=== PATIENT | male | born 1980 | race Caucasian/White ===

== ENCOUNTER 2018-07-24 22:28 | Emergency (ER) | payer BC, SELFPAY ==
[2018-07-24 22:45] VITALS: BP 150/80; PULSE 72; TEMP 36.4; O2SAT 95
--- NOTE | 2018-07-24 23:15 | W.ED.GENAD ---
Discharge Plan Disposition Patient Disposition: HOME Condition: Good Discharge Details Chief Complaint: Abd Prob Clinical Impression: Gastritis Reason For Visit: abd pain Primary Care Provider: Jb Dang ED Provider: Lawson Alvarez Home Meds and New Rx's Prescriptions: New pantoprazole 40 mg tablet,delayed release (DR/EC) 40 mg PO BID Qty: 60 RF: 0 ranitidine HCl 300 mg capsule 300 mg PO DAILY Qty: 30 RF: 0 No Action hydrocodone-acetaminophen 1 EACH tablet 1 tab-cap PO Q4H PRN Qty: 40 RF: 0 ketorolac 10 MG tablet 10 mg PO Q8H Qty: 15 RF: 0 montelukast [Singulair] 10 MG tablet 10 mg PO BOLUS RF: 0 fluticasone [Flovent HFA] 120 PUFF HFA aerosol inhaler 2 puff Inhalation BID RF: 0 levalbuterol tartrate [Xopenex HFA] 200 PUFF HFA aerosol inhaler 2 puff Inhalation PRN PRNRF: 0 Discharge Instructions Instructions: Gastritis (ED) Additional Instructions: Please take the medication as directed. Please avoid any spicy foods, citrus-based products. If you notice any worsening of your symptoms, or any new symptoms such as vomiting, diarrhea, fever, chills, shortness of breath, chest pain, numbness, weakness, or fainting , please return immediately to the emergency department for reevaluation. Please follow up with your primary care provider as soon as possible for reassessment and reevaluation. As always, it was a pleasure participating in your medical care today. Medical Decision Making MDM Narrative Medical decision making narrative: This is a very pleasant 38-year-old male with no significant past medical history who presents today for evaluation of supraumbilical pain. It started 4 hours prior to arrival, and initially was in the back but is now in the anterior abdomen. He denies any flank pain or urinary symptoms. Currently his abdomen is mildly tender, no guarding or rebound. Patient denies any spicy foods, history of gastric ulcers. He did take a Pepcid at home but this did not improve his symptoms. We will give the patient a GI cocktail, evaluate for unlikely but atypical cardiac etiology. I did discuss potential CT scan versus observation and medical management, and with a recurrence of his symptoms, the patient does feel that a CT scan is reasonable. Although I feel that we might not find any significant etiology with I do feel that it is indicated to rule out acute pathology of cholecystitis, pancreatic abscess or mass, or other acute pathology. We will get a CT scan for further evaluation EKG 23: 17 Rate 55, intervals normal, sinus bradycardia, no ST elevations or depressions, no T-wave inversions. No significant Q waves. Normal EKG 1:33 AM Patient's laboratory workup has returned benign. No significant abnormalities. CT scan results from virtual radiology demonstrate no acute findings. No evidence of appendicitis or other acute pathology. On reevaluation the patient is feeling much better. I do feel his symptoms are most likely secondary to mild gastritis. We will send the patient home with J medications, we discussed foods for which to avoid, as well as the importance of close follow-up. I have extensively reviewed the treatment plan and discharge instructions with the patient. I have addressed all patient concerns at this time. The patient was made aware of what symptoms to monitor for that would warrant a return to the emergency department. Discussed the plan with the patient, they demonstrate verbal understanding and agreement with our assessment and plan at this time. HPI - General Adult General Date/Time Provider Initiated Documentation: 07/24/18 23:07. HPI Narrative: This is a 38-year-old male with no significant past medical history except for asthma, who does take occasional Pepcid, who presents today for evaluation of supraumbilical/epigastric abdominal pain. The patient states that 4 hours prior to arrival he had initially a midline back pain which she describes as achy, and then transition to the epigastric and supraumbilical region. It is been continuous in nature, it is been worsened nothing, improved by nothing. He did take a home Pepcid but this did not improve his symptoms. He has had no associated nausea, vomiting, or diarrhea. He has not had anything spicy, or made any changes into his diet recently. The patient did have an episode similar to this 4 weeks ago, which she states that he was seen and assessed at an ER in [place], no imaging or significant workup was done at that time, however the pain got better on its own after GI cocktail. The patient denies any other associated symptoms. He denies any hematuria, flank pain, dysuria, increased urinary frequency, history of gastric problems, or gastric ulcers. The Pepcid that he took was given to him on his last ER visit 4 weeks ago. He denies any previous abdominal surgeries. He denies any pertinent family history. He denies any history of IV or illicit drug use. He has no other complaints at this time Related Data Home Medications Medication Instructions Recorded Confirmed fluticasone [Flovent 220MCG] 2 puff INHALATION BID 07/04/15 03/04/16 levalbuterol tartrate [Xopenex Hfa] 2 puff INHALATION PRN PRN 07/04/15 03/04/16 montelukast [Singulair] 10 mg PO BOLUS 07/04/15 03/04/16 hydrocodone-acetaminophen 1 tab-cap PO Q4H PRN #40 tab-cap 03/09/16 ketorolac 10 mg PO Q8H #15 tab-cap 03/09/16 Previous Rx's Medication Instructions Recorded pantoprazole 40 mg PO BID #60 tab 07/25/18 ranitidine HCl 300 mg PO DAILY #30 cap 07/25/18 Allergies Allergy/AdvReac Type Severity Reaction Status Date / Time No Known Allergies Allergy Unverified 07/24/18 23:35 General Stated Complaint: Abd Prob JEREMIAH: 3 Review of Systems Review of Systems 10 point review of systems was performed, pertinent positives and negatives are noted in the history of present illness. [facility] Social History Smoking/Tobacco Use Status: Never Exam Narrative Exam Narrative: 1.Const: Well-nourished, Well-developed, appearing stated age 2.Eyes: PERRL, no conjunctival injection, and symmetrical lids. 3.ENT: Atraumatic external nose and ears. Moist MM. Neck: Symmetric, trachea midline, No thyromegaly. 4.CVS: +S1/S2, No murmurs or gallops. Peripheral pulses 2+ and equal in all extremities. Brisk capillary refill in all extremities. 5.RESP: Unlabored respiratory effort. Clear to auscultation bilaterally. No wheezes rales or rhonchi 6.GI: Soft, no guarding or rebound, no flank tenderness, no CVA tenderness minimal tenderness in the supraumbilical region. Negative Cano sign, no pain at McBurney's point. Negative obturator and psoas sign.. 7.MSK: Normocephalic/Atraumatic, Extremities w/o deformity or ttp No cyanosis or clubbing, Normal movement of all extremities 8.Skin: Warm, Dry. No rashes or lesions. 9.Neuro: manager of planning II-XII grossly intact. Sensation grossly intact, no focal neurologic deficits. 10.Psych: (AAO) x3. Appropriate mood and affect Course Vital Signs Temperature 36.4 C L 07/24/18 22:45 Pulse 72 07/24/18 22:45 Blood Pressure 150/80 H 07/24/18 22:45 Pulse Oximetry 95 07/24/18 22:45 Temperature 36.4 C L 07/24/18 22:45 Pulse 72 07/24/18 22:45 Blood Pressure 150/80 H 07/24/18 22:45 Pulse Oximetry 95 07/24/18 22:45
[2018-07-24] MEDS: Acetaminophen 500 MG TAB 1000 MG PO (23:18)
[2018-07-24] MEDS: Normal Saline 1,000 ML 1000 ML IV (23:19)
[2018-07-24 23:26] LABS: Abs Immature Grans 0.01 k/cumm (0.0-0.09); Absolute Basophil Count 0.04 k/cumm (0.0-0.2); Absolute Eosinophil Count 0.34 k/cumm (0.0-0.7); Absolute Lymphocyte Count 1.71 k/cumm (1.2-3.4); Absolute Monocyte Count 0.52 k/cumm (0.11-0.7); Absolute Neutrophil Count 3.89 k/cumm (1.2-6.7); Basophils % 0.6; Eosinophils % 5.2; HCT 41.7 % (40.0-50.0); HGB 14.6 g/dL (13.5-17.5); Immature Grans % 0.2; Lymphocytes % 26.3; Mean Corpuscular Hemoglobin 32.2 pg (27.0-33.0); Mean Corpuscular Volume 91.9 fL (80-95); Mean Platelet Volume 9.2 fL (8.0-11.0); Neutrophils % 59.7; Platelet Count 229 x1000/uL (130-400); RBC 4.54 m/cumm (4.50-6.00); RBC Distribution Width 12.4 % (11.8-14.1); White Blood Cell Count 6.51 k/cumm (4.4-10.8)
[2018-07-24 23:35] LABS: Bilirubin Negative (Negative); Blood Negative (Negative); Clarity Clear; Glucose Negative (Negative); Ketones Negative (Negative); Leukocyte Esterase Negative (Negative); Nitrite Negative (Negative); Specific Gravity >= 1.030 (1.005-1.025); Urobilinogen 0.2 EU/dL (Up TO 0.2); pH 5.5 (5-8)
[2018-07-24 23:36] LABS: Lipase 387 U/L (73-393)
[2018-07-24 23:41] LABS: ALT 30 U/L (12-78); AST 18 U/L (15-37); Alkaline Phosphatase 78 U/L (46-116); Anion Gap 9.2 mmol/L (3-11); BUN 11 mg/dL (7-18); Bilirubin, Total 0.4 mg/dL (0.2-1.0); CO2 27.8 mmol/L (21.0-32.0); CREATININE 0.83 mg/dL (0.70-1.30); Calcium 8.6 mg/dL (8.5-10.1); Chloride 102 mmol/L (98-107); Glucose 125 mg/dL (70-100); Potassium 3.4 mmol/L (3.5-5.1); Sodium 139 mmol/L (136-145); Total Protein 7.5 g/dL (6.4-8.2)
[2018-07-24 23:44] LABS: Troponin I < 0.02 ng/mL (0.00-0.06)
[2018-07-25] MEDS: Dicyclomine 10 MG CAP 20 MG (00:01)
[2018-07-25] MEDS: Omnipaque 350 MG/ML 50 ML BTL PO (00:10)
--- NOTE | 2018-07-25 00:55 | DI.CT_ITS ---
SYMPTOM/DIAGNOSIS: EPIGASTRIC AND SUPRAUMBILICAL ABD PAIN ABDOMEN AND PELVIC CT: The study was carried out with an intravenous injection of 100 cc's of Omnipaque 350. The lung bases are unremarkable. The liver is unremarkable. The gallbladder is intact with no stones or ductal dilatation. The pancreas, spleen and adrenals and kidneys and stomach and bowel are unremarkable. There is nothing to suggest an acute appendix. The bladder is intact. The reproductive organs as visualized are intact. There is no evidence of free air or free fluid in the intraperitoneal space. No acute bony abnormality is seen. No soft tissue abnormality is identified. There is no evidence of an aortic aneurysm. There is no lymphadenopathy. SUMMARY: No evidence of an acute abdomen.
[2018-07-25] MEDS: Omnipaque 350 MG/ML 100 ML BTL IJ (01:09)
--- NOTE | 2018-07-25 01:17 | DI.VRAD_ITS ---
EXAM: CT Abdomen and Pelvis With Intravenous Contrast CLINICAL HISTORY: 38 years old, male; Pain; Abdominal pain; Acute; Patient HX: Sudden onset abd pain for 6 hours TECHNIQUE: Axial computed tomography images of the abdomen and pelvis with intravenous contrast. All CT scans at this facility use at least one of these dose optimization techniques: automated exposure control; mA and/or kV adjustment per patient size (includes targeted exams where dose is matched to clinical indication); or iterative reconstruction. Coronal and sagittal reformatted images were created and reviewed. CONTRAST: 100 mL of Omnipaque 350 administered intravenously. COMPARISON: No relevant prior studies available. FINDINGS: Lung bases: Unremarkable. No mass. No consolidation. ABDOMEN: Liver: Unremarkable. No mass. Gallbladder and bile ducts: Unremarkable. No calcified stones. No ductal dilation. Pancreas: Unremarkable. No mass. No ductal dilation. Spleen: Unremarkable. No splenomegaly. Adrenals: Unremarkable. No mass. Kidneys and ureters: Unremarkable. No solid mass. No hydronephrosis. Stomach and bowel: Unremarkable. No obstruction. No mucosal thickening. PELVIS: Appendix: Normal appendix. Bladder: Unremarkable. No mass. Reproductive: Unremarkable as visualized. ABDOMEN and PELVIS: Intraperitoneal space: Unremarkable. No free air. No significant fluid collection. Bones/joints: No acute fracture. No dislocation. Soft tissues: Unremarkable. Vasculature: Unremarkable. No abdominal aortic aneurysm. Lymph nodes: Unremarkable. No enlarged lymph nodes. IMPRESSION: No acute findings. Dictated and Authenticated by: David Regan MD. Ordering:KIMBERLY ANDERS MD
== END 2018-07-25 01:43 | disposition home or self-care (01) ==
PROVIDERS: Emergency Provider Student in an Organized Health Care Education/Training Program; PCP Family Medicine
DX: K29.00 Acute gastritis without bleeding (principal)
CPT/HCPCS: 36415; 80053; 83690; 93005; 99285; 74177; 81003; 84484; 85025; 93010; 99284; J3490; Q9967

== ENCOUNTER 2018-07-28 22:32 | Observation (INO) | payer BC, SELFPAY ==
--- NOTE | 2018-07-28 00:26 | DI.CT_ITS ---
SYMPTOM/DIAGNOSIS: ABD AND BACK PAIN CTA CHEST, ABDOMEN AND PELVIS: CT angiography was performed with multi slice acquisition and multi planar and 3D reconstruction. ABDOMEN AND PELVIS: Comparison is made with 07/25/18. There are areas of relatively increased attenuation in the liver adjacent to the gallbladder fossa. No hepatic mass is seen. No biliary ductal dilatation is seen. The portal and superior mesenteric veins are patent. The gallbladder is mildly distended. There is soft tissue stranding around the gallbladder. The pancreas, spleen and adrenal glands are unremarkable. The kidneys show normal and symmetric enhancement. No solid renal mass or obstruction is seen. The urinary bladder is intact. The reproductive organs are grossly unremarkable. The bowel shows no evidence of obstruction or inflammation. No findings to suggest an acute appendicitis are present. The thoracic aorta is intact. No evidence of dissection or aneurysm. The celiac axis, superior mesenteric artery and inferior mesenteric arteries are all unremarkable without evidence of significant stenosis, occlusion or dissection. Note is made of a small fat containing umbilical hernia. The bones are intact. Note is made of a Schmorl's node at the superior endplate of L 4. IMPRESSION: 1. No evidence of arterial injury, dissection or aneurysm. 2. Findings suggestive of acute cholecystitis. 3. Increased attenuation in the liver around the gallbladder fossa. This may be due to adjacent gallbladder inflammation. Focal fatty sparing cannot be excluded. CHEST: The superior chest including portions of the superior aspect of the thoracic aortic arch were not included on the examination. The visualized thoracic aorta is intact and of normal caliber. No evidence of dissection is seen. Heart size is within normal limits. No significant pericardial effusion is seen. No significant thoracic adenopathy, pleural effusion or pneumothorax is identified on this examination. The lungs are clear. No acute fracture is seen in the spine. IMPRESSION: 1. No evidence of an acute abnormality. 2. The upper chest including the superior portion of the thoracic aortic arch were not included on this examination.
[2018-07-28 22:37] VITALS: BP 135/88; PULSE 78; RESP 16; TEMP 36.9; O2SAT 99
--- NOTE | 2018-07-28 22:57 | W.ED.GENAD ---
Discharge Plan Disposition Patient Disposition: [facility] INPATIENT Condition: Stable Discharge Details Chief Complaint: Abd Prob Clinical Impression: Abdominal pain, Acalculous cholecystitis Primary Care Provider: Jb Dang ED Provider: Rafa Ruvalcaba Home Meds and New Rx's Prescriptions: No Action montelukast [Singulair] 10 MG tablet 10 mg PO BOLUS RF: 0 fluticasone [Flovent HFA] 120 PUFF HFA aerosol inhaler 2 puff Inhalation BID RF: 0 levalbuterol tartrate [Xopenex HFA] 200 PUFF HFA aerosol inhaler 2 puff Inhalation PRN PRNRF: 0 pantoprazole 40 mg tablet,delayed release (DR/EC) 40 mg PO BID Qty: 60 RF: 0 ranitidine HCl 300 mg capsule 300 mg PO DAILY Qty: 30 RF: 0 Medical Decision Making 38 yo male with hx of asthma, who comes in with abdominal burning. He was seen here earlier this week for abdominal pain and had unremarkable workup including labs and imaging. He was diagnosed with likely gastritis and placed on ppi and h2 blockers. He was doing well until tonight when about 1-2 hours prior to arrival he had crackers and cheese and had increased burning sensation in the abdomen, no chest pain, sob, and no pain with exertion, does have some mild back pain which he had last time as well. His abdominal exam is benign and do not feel additional lab work or imaging indicated as unlikely surgical pathology, will treat his symptoms with gi cocktail and reassess. Has no chest pain or shortness of breath so doubt acs at this time pt had minimal relief with gi cocktail, will eval forhepatis vs pancreattis and give carafate pt now stating pain is much more severe and is in the upper abdomen and radiating to the back. Given this will obtain CT imaging to eval for acute pathology ct shows findings suggestive of acute cholecystitis though no gallstones are seen. His pain is improved but he still has pain in the upper abdomen and does have gonzalez's sign on my exma. Spoke with Dr. Pierce who accepts the admission and asks zosyn be given and holding orders, pt updated and is in agreement with the plan Differential Diagnosis gastritis, ulcer, gerd Imaging Data Radiologic Study: Attestation: I personally reviewed and interpreted this imaging study as follows: Imaging: CT Scan Radiologist's impression: findings suggestive of acute cholecystitis Lab Data Lab results reviewed: Yes I reviewed the patient's lab results. HPI General Mode of arrival: ambulatory. Date/Time Provider Initiated Documentation: 07/28/18 22:40. Limitations to Documentation: no limitations. Information obtained by: patient. History of Present Illness 38 year old M presents to the emergency department with the chief complaint of abdominal burning, described as moderate, with intensity rated at 5. Quality is described as burning, and is localized to the abdomen. Patient reports radiation to back. Patient started experiencing this hour(s) (2) and it has been constant. No relieving factors improve symptom(s), No exacerbating factors reported . Patient notes no other symptoms.. Patient did receive the following treatments prior to arrival, none Related Data Home Medications Medication Instructions Recorded Confirmed fluticasone [Flovent 220MCG] 2 puff INHALATION BID 07/04/15 07/28/18 levalbuterol tartrate [Xopenex Hfa] 2 puff INHALATION PRN PRN 07/04/15 07/28/18 montelukast [Singulair] 10 mg PO BOLUS 07/04/15 07/28/18 Previous Rx's Medication Instructions Recorded pantoprazole 40 mg PO BID #60 tab 07/25/18 ranitidine HCl 300 mg PO DAILY #30 cap 07/25/18 Allergies Allergy/AdvReac Type Severity Reaction Status Date / Time No Known Allergies Allergy Unverified 07/28/18 22:45 General Stated Complaint: Abd Prob JEREMIAH: 3 Review of Systems Review of Systems All systems reviewed & are unremarkable except as noted in HPI and below Constitutional Denies chills, Denies fever(s) and Denies weakness Eyes Patient Denies loss of vision ENT Denies change in voice Cardiovascular Denies chest pain and Denies dyspnea Respiratory Denies dyspnea Gastrointestinal Denies vomiting Genitourinary Denies dysuria Musculoskeletal Denies joint swelling Integumentary/Breasts Denies rash Neurologic Denies loss of vision and Denies weakness Psychiatric Denies depression Endocrine Denies cold intolerance and Denies heat intolerance Allergic/Immunologic Reports urticaria PFSH Social History Smoking/Tobacco Use Status: Never Exam Const General: no acute distress Orientation: alert HENMT Head: normal to inspection Ears: external ears normal General nose exam: external nose normal Mouth: moist mucous membranes Eyes General: appearance normal, both eyes and all related structures Neck Neck: normal visual inspection Resp Effort & Inspection: normal respiratory effort and able to speak in complete sentences Cardio Rate: regular rate GI Inspection: normal to inspection and other (mild tenderness without guarding throughout the upper abdomen, no rebound tenderness, no lower abdominal tendernress) Palpation: soft Skin General skin exam: no rashes or lesions noted Neuro General: alert and oriented x3 Extrem General: normal to inspection Psych Mental Status: mental status grossly normal Course Vital Signs Temperature 36.9 C 07/28/18 22:37 Pulse 78 07/28/18 22:37 Respiratory Rate 16 07/28/18 22:37 Blood Pressure 135/88 07/28/18 22:37 Pulse Oximetry 99 07/28/18 22:37 Temperature 36.9 C 07/28/18 22:37 Pulse 78 07/28/18 22:37 Respiratory Rate 16 07/28/18 22:37 Blood Pressure 135/88 07/28/18 22:37 Pulse Oximetry 99 07/28/18 22:37
--- NOTE | 2018-07-28 23:00 | ED.GENADUL_ITS ---
Discharge Plan Disposition Patient Disposition: [facility] INPATIENT Condition: Stable Discharge Details Chief Complaint: Abd Prob Clinical Impression: Abdominal pain, Acalculous cholecystitis Primary Care Provider: Jb Dang ED Provider: Rafa Ruvalcaba Home Meds and New Rx's Prescriptions: No Action montelukast [Singulair] 10 MG tablet 10 mg PO BOLUS RF: 0 fluticasone [Flovent HFA] 120 PUFF HFA aerosol inhaler 2 puff Inhalation BID RF: 0 levalbuterol tartrate [Xopenex HFA] 200 PUFF HFA aerosol inhaler 2 puff Inhalation PRN PRNRF: 0 pantoprazole 40 mg tablet,delayed release (DR/EC) 40 mg PO BID Qty: 60 RF: 0 ranitidine HCl 300 mg capsule 300 mg PO DAILY Qty: 30 RF: 0 Medical Decision Making 38 yo male with hx of asthma, who comes in with abdominal burning. He was seen here earlier this week for abdominal pain and had unremarkable workup including labs and imaging. He was diagnosed with likely gastritis and placed on ppi and h2 blockers. He was doing well until tonight when about 1-2 hours prior to arrival he had crackers and cheese and had increased burning sensation in the abdomen, no chest pain, sob, and no pain with exertion, does have some mild back pain which he had last time as well. His abdominal exam is benign and do not feel additional lab work or imaging indicated as unlikely surgical pathology , will treat his symptoms with gi cocktail and reassess. Has no chest pain or shortness of breath so doubt acs at this time pt had minimal relief with gi cocktail, will eval forhepatis vs pancreattis and give carafate pt now stating pain is much more severe and is in the upper abdomen and radiating to the back. Given this will obtain CT imaging to eval for acute pathology ct shows findings suggestive of acute cholecystitis though no gallstones are seen. His pain is improved but he still has pain in the upper abdomen and does have gonzalez's sign on my exma. Spoke with Dr. Pierce who accepts the admission and asks zosyn be given and holding orders, pt updated and is in agreement with the plan Differential Diagnosis gastritis, ulcer, gerd Imaging Data Radiologic Study: Attestation: I personally reviewed and interpreted this imaging study as follows: Imaging: CT Scan Radiologist's impression: findings suggestive of acute cholecystitis Lab Data Lab results reviewed: Yes I reviewed the patient's lab results. HPI General Mode of arrival: ambulatory . Date/Time Provider Initiated Documentation: 07/28/18 22:40 . Limitations to Documentation: no limitations . Information obtained by: patient . History of Present Illness 38 year old M presents to the emergency department with the chief complaint of abdominal burning, described as moderate, with intensity rated at 5. Quality is described as burning, and is localized to the abdomen. Patient reports radiation to back. Patient started experiencing this hour(s) (2) and it has been constant. No relieving factors improve symptom(s), No exacerbating factors reported . Patient notes no other symptoms.. Patient did receive the following treatments prior to arrival, none Related Data Home Medications Medication Instructions Recorded Confirmed fluticasone [Flovent 220MCG] 2 puff INHALATION BID 07/04/15 07/28/18 levalbuterol tartrate [Xopenex Hfa] 2 puff INHALATION PRN PRN 07/04/15 07/28/18 montelukast [Singulair] 10 mg PO BOLUS 07/04/15 07/28/18 Previous Rx's Medication Instructions Recorded pantoprazole 40 mg PO BID #60 tab 07/25/18 ranitidine HCl 300 mg PO DAILY #30 cap 07/25/18 Allergies Allergy/AdvReac Type Severity Reaction Status Date / Time No Known Allergies Allergy Unverified 07/28/18 22:45 General Stated Complaint: Abd Prob JEREMIAH: 3 Review of Systems Review of Systems All systems reviewed & are unremarkable except as noted in HPI and below Constitutional Denies chills, Denies fever(s) and Denies weakness Eyes Patient Denies loss of vision ENT Denies change in voice Cardiovascular Denies chest pain and Denies dyspnea Respiratory Denies dyspnea Gastrointestinal Denies vomiting Genitourinary Denies dysuria Musculoskeletal Denies joint swelling Integumentary/Breasts Denies rash Neurologic Denies loss of vision and Denies weakness Psychiatric Denies depression Endocrine Denies cold intolerance and Denies heat intolerance Allergic/Immunologic Reports urticaria PFSH Social History Smoking/Tobacco Use Status: Never Exam Const General: no acute distress Orientation: alert HENMT Head: normal to inspection Ears: external ears normal General nose exam: external nose normal Mouth: moist mucous membranes Eyes General: appearance normal, both eyes and all related structures Neck Neck: normal visual inspection Resp Effort & Inspection: normal respiratory effort and able to speak in complete sentences Cardio Rate: regular rate GI Inspection: normal to inspection and other (mild tenderness without guarding throughout the upper abdomen, no rebound tenderness, no lower abdominal tendernress) Palpation: soft Skin General skin exam: no rashes or lesions noted Neuro General: alert and oriented x3 Extrem General: normal to inspection Psych Mental Status: mental status grossly normal Course Vital Signs Temperature 36.9 C 07/28/18 22:37 Pulse 78 07/28/18 22:37 Respiratory Rate 16 07/28/18 22:37 Blood Pressure 135/88 07/28/18 22:37 Pulse Oximetry 99 07/28/18 22:37 Temperature 36.9 C 07/28/18 22:37 Pulse 78 07/28/18 22:37 Respiratory Rate 16 07/28/18 22:37 Blood Pressure 135/88 07/28/18 22:37 Pulse Oximetry 99 07/28/18 22:37
[2018-07-28] MEDS: Sucralfate 1 GM TAB 2 GM PO (23:22)
[2018-07-28 23:36] LABS: Abs Immature Grans 0.02 k/cumm (0.0-0.09); Absolute Basophil Count 0.05 k/cumm (0.0-0.2); Absolute Eosinophil Count 0.37 k/cumm (0.0-0.7); Absolute Lymphocyte Count 1.13 k/cumm (1.2-3.4); Absolute Monocyte Count 0.95 k/cumm (0.11-0.7); Absolute Neutrophil Count 7.16 k/cumm (1.2-6.7); Basophils % 0.5; Eosinophils % 3.8; HCT 41.2 % (40.0-50.0); HGB 14.3 g/dL (13.5-17.5); Immature Grans % 0.2; Lymphocytes % 11.7; Mean Corp. HGB Concentration 34.7 g/dL (32.0-36.0); Mean Corpuscular Hemoglobin 32.3 pg (27.0-33.0); Monocytes % 9.8; Platelet Count 250 x1000/uL (130-400); RBC 4.43 m/cumm (4.50-6.00); RBC Distribution Width 12.3 % (11.8-14.1); White Blood Cell Count 9.68 k/cumm (4.4-10.8)
[2018-07-29] VITALS (18 sets, daily range): BP systolic 116–174; BP diastolic 66–98; PULSE 76–148; RESP 14–18; TEMP 36.7–37.9; O2SAT 94–98
[2018-07-29 00:02] LABS: ALT 25 U/L (12-78); AST 16 U/L (15-37); Albumin 3.8 g/dL (3.4-5.0); Alkaline Phosphatase 83 U/L (46-116); Anion Gap 7.5 mmol/L (3-11); BUN 11 mg/dL (7-18); CO2 30.5 mmol/L (21.0-32.0); CREATININE 0.79 mg/dL (0.70-1.30); Calcium 9.2 mg/dL (8.5-10.1); Chloride 100 mmol/L (98-107); Glucose 115 mg/dL (70-100); Lipase 194 U/L (73-393); Potassium 3.9 mmol/L (3.5-5.1); Sodium 138 mmol/L (136-145); Total Protein 7.7 g/dL (6.4-8.2)
[2018-07-29] MEDS: fentaNYL 100 MCG/2 ML VIAL IVP ×2 (00:09→00:58)
[2018-07-29] MEDS: Omnipaque 350 MG/ML 100 ML BTL IJ (00:28)
[2018-07-29] MEDS: HYDROmorphone 2 MG/ML VIAL 1 MG IVP ×2 (01:32→02:19)
--- NOTE | 2018-07-29 01:52 | DI.VRAD_ITS ---
EXAM: CT Angiography Chest With Intravenous Contrast EXAM DATE/TIME: 07/28/2018 12:00 AM CLINICAL HISTORY: 38 years old, male; Pain; Other: Back pain; Abdominal pain; Acute TECHNIQUE: Axial computed tomographic angiography images of the chest with intravenous contrast using CT angiography protocol. MIP reconstructed images were created and reviewed. COMPARISON: No relevant prior studies available. FINDINGS: Pulmonary arteries: Normal. No pulmonary emboli. Aorta: There is no thoracic aortic aneurysm or evidence of dissection. Please note the aortic arch is partially excluded from the [id number]. Lungs: Normal. No consolidation. No masses. Pleural space: Normal. No pneumothorax. No pleural effusion. Heart: Normal. No cardiomegaly. No pericardial effusion. Bones/joints: Scattered Schmorl's nodes are present in the thoracic spine. No acute fractures are seen. No subluxation. Soft tissues: Unremarkable. Lymph nodes: Unremarkable. No enlarged lymph nodes. IMPRESSION: 1. No acute findings. 2. Please note that the aortic arch is partially excluded from the [id number]. EXAM: CT Angiography Abdomen and Pelvis With Intravenous Contrast EXAM DATE/TIME: 07/28/2018 12:00 AM CLINICAL HISTORY: 38 years old, male; Pain; Other: Back pain; Abdominal pain; Acute TECHNIQUE: Axial computed tomographic angiography images of the abdomen and pelvis with intravenous contrast material, including non-contrast images if performed. MIP and/or 3D reconstructed images were created and reviewed. MIP reconstructed images were created and reviewed. COMPARISON: No relevant prior studies available. FINDINGS: Lungs: Normal. No consolidation. VASCULATURE: Aorta: No aortic aneurysm. No aortic dissection. Celiac Trunk and Mesenteric Arteries: No occlusion or significant stenosis. Renal Arteries: No occlusion or significant stenosis. Iliac Arteries: No occlusion or significant stenosis. Common Femoral Arteries: No occlusion or significant stenosis. ABDOMEN: Liver: Region of increased attenuation/enhancement is present in the liver about the gallbladder fossa, which may be seen in the setting of gallbladder inflammation. No discrete mass is seen. No hepatomegaly. Gallbladder and bile ducts: The gallbladder is mildly distended, with hazy indistinctness of the gallbladder wall and mild degree of surrounding fat stranding. No calcified stones are seen. Pancreas: Unremarkable. No mass. No ductal dilation. Spleen: Unremarkable. No splenomegaly. Adrenals: Unremarkable. No mass. Kidneys and ureters: Unremarkable. No solid mass. No hydronephrosis. Stomach and bowel: Unremarkable. No obstruction. No mucosal thickening. Appendix: No evidence of appendicitis. PELVIS: Bladder: Unremarkable. No mass. Reproductive: Unremarkable as visualized. ABDOMEN and PELVIS: Intraperitoneal space: Unremarkable. No free air. No significant fluid collection. Bones/joints: Scattered Schmorl's nodes are noted. Likely mild disc degeneration at L5-S1. No fractures are seen. Soft tissues: There is a fat-containing umbilical hernia. The remaining visualized extra-abdominal soft tissues are unremarkable. Lymph nodes: Unremarkable. No enlarged lymph nodes. IMPRESSION: 1. No evidence of aortic dissection, abdominal aortic aneurysm, or other acute angiographic abnormality. 2. Findings concerning for acute cholecystitis. Correlate for focal right upper quadrant tenderness. Dictated and Authenticated by: Trey Basilio MD. Ordering:LAMIN ESPITIA MD
[2018-07-29] MEDS: Ketorolac 30 MG/ML VIAL IVP ×2 (02:20→19:23)
[2018-07-29] MEDS: Normal Saline 1,000 ML 150 ML IV ×3 (02:21→13:28)
[2018-07-29] MEDS: PIPERACILLIN/TAZO 4.5 GM in Normal Saline 100 ML IVPB (02:22)
[2018-07-29] MEDS: HYDROmorphone 2 MG/ML VIAL IVP (04:27)
[2018-07-29] MEDS: HYDROmorphone 2 MG/ML VIAL 0.5 MG IVP ×2 (08:28→10:43)
--- NOTE | 2018-07-29 09:15 | HPE_ITS ---
Date of service: 07/29/18 Time of Service: 09:14 Assessment and Plan (1) Acute cholecystitis: Start date: 07/29/18 Start time: 09:40 Current visit: Yes Status: Acute 38 year old male with symptoms consistent with biliary disease, and CT findings suggestive of acute cholecystitis. Laboratory studies show left shift but normal liver function test. Given patient's presentation, and clinical, diagnostic findings, I recommended surgical intervention. I discussed the procedure for laparoscopic cholecystectomy possible open cholecystectomy with Mr. Linares and his . We reviewed the risk of the procedure, and all their questions were answered to their satisfaction. No promises were given or guarantees made. Consent was obtained to proceed with laparoscopic cholecystectomy possible open cholecystectomy History of Present Illness Chief Complaint: RUQ pain Narrative: 38-year-old male presenting to the emergency room with 5 days of epigastric abdominal pain with associated nausea and vomiting. Initial onset of pain was 5 days ago, since then he has had a general malaise. In the last 24 hours his pain is progressed significantly to the point where he required presentation to the emergency room. He did have a similar attack approximately a month ago. Both of these episodes of onset of pain were within hours of eating dinner. He thinks he had cheese in both instances. He denies any sick contacts and has tried no new foods. He does state that he felt very feverish this morning, with chills. Surgery was consulted to evaluate Review of Systems Review of Systems All systems reviewed & are unremarkable except as noted in HPI and below Constitutional Reports chills, Reports fever(s) and Reports malaise Gastrointestinal Reports abdominal pain, Reports bloating, Reports heartburn, Reports nausea and Reports vomiting Musculoskeletal Reports back pain (radiation of pain to below right scapula) PFSH Social History Smoking/Tobacco Use Status: Never Meds Home Medications Medication Instructions Recorded Confirmed Type fluticasone [Flovent 220MCG] 2 puff INHALATION BID 07/04/15 07/28/18 History levalbuterol tartrate [Xopenex Hfa] 2 puff INHALATION PRN PRN 07/04/15 07/28/18 History montelukast [Singulair] 10 mg PO BOLUS 07/04/15 07/28/18 History Allergies Allergy/AdvReac Type Severity Reaction Status Date / Time No Known Allergies Allergy Unverified 07/28/18 22:45 Exam Const General: cooperative, healthy appearing and acute distress mild Nutritional Appearance: average body habitus and well nourished Orientation: alert, awake and oriented x3 HENMT Head: normocephalic and atraumatic Ears: hearing grossly normal bilaterally Face and sinus: normal facial exam Mouth: oral mucosae normal Teeth and gingiva: dentition normal Eyes General: appearance normal, both eyes and all related structures Sclera: sclerae normal Pupils: PERRL EOM: EOM intact bilaterally Neck Neck: normal visual inspection, trachea midline and supple Resp Effort & Inspection: normal respiratory effort, able to speak in complete sentences, no audible wheezes, no cough and not labored Cardio Rate: regular rate Rhythm: regular rhythm Pulses: normal peripheral pulses GI Inspection: non-distended Palpation: soft and tender in the epigastrum and Cano's sign positive ( positive); not in the RUQ and with no rebound tenderness Rectal Exam: deferred Back/Spine/Pelvis Back: no CVA tenderness Skin General skin exam: no rashes or lesions noted and turgor normal Neuro General: moves all extremities, no focal motor deficits and CN's II-XI intact bilaterally Extrem General: no clubbing, cyanosis or edema Psych Appearance: grossly normal and well kempt Mental Status: mental status grossly normal Affect: normal affect Judgment: judgment good Results Imaging Abdomen CT scan report/results: image reviewed CT scan - chest: image reviewed CT scan - pelvis: image reviewed Labs : 07/28/18 23:30 07/28/18 23:30 Laboratory Results - last 24 hr 07/28/18 07/28/18 23:30 23:30 WBC 9.68 RBC 4.43 L Hgb 14.3 Hct 41.2 MCV 93.0 MCH 32.3 MCHC 34.7 RDW 12.3 Plt Count 250 MPV 9.0 Immature Gran % 0.2 Neutrophils % 74.0 Lymphocytes % 11.7 Monocytes % 9.8 Eosinophils % 3.8 Basophils % 0.5 Absolute Neutrophils 7.16 H Absolute Lymphocytes 1.13 L Absolute Monocytes 0.95 H Absolute Eosinophils 0.37 Absolute Basophils 0.05 Sodium 138 Potassium 3.9 Chloride 100 Carbon Dioxide 30.5 Anion Gap 7.5 BUN 11 Creatinine 0.79 Estimated GFR/1.73 m2 >= 60.00 Glucose 115 H Calcium 9.2 Total Bilirubin 1.0 AST 16 ALT 25 Alkaline Phosphatase 83 Total Protein 7.7 Albumin 3.[address] Angiography Abdomen and Pelvis With Intravenous Contrast EXAM DATE/TIME: 07/28/2018 12:00 AM CLINICAL HISTORY: 38 years old, male; Pain; Other: Back pain; Abdominal pain; Acute FINDINGS: Lungs: Normal. No consolidation. VASCULATURE: Aorta: No aortic aneurysm. No aortic dissection. Celiac Trunk and Mesenteric Arteries: No occlusion or significant stenosis. Renal Arteries: No occlusion or significant stenosis. Iliac Arteries: No occlusion or significant stenosis. Common Femoral Arteries: No occlusion or significant stenosis. ABDOMEN: Liver: Region of increased attenuation/enhancement is present in the liver about the gallbladder fossa, which may be seen in the setting of gallbladder inflammation. No discrete mass is seen. No hepatomegaly. Gallbladder and bile ducts: The gallbladder is mildly distended, with hazy indistinctness of the gallbladder wall and mild degree of surrounding fat stranding. No calcified stones are seen. Pancreas: Unremarkable. No mass. No ductal dilation. Spleen: Unremarkable. No splenomegaly. Adrenals: Unremarkable. No mass. Kidneys and ureters: Unremarkable. No solid mass. No hydronephrosis. Stomach and bowel: Unremarkable. No obstruction. No mucosal thickening. Appendix: No evidence of appendicitis. PELVIS: Bladder: Unremarkable. No mass. Reproductive: Unremarkable as visualized. ABDOMEN and PELVIS: Intraperitoneal space: Unremarkable. No free air. No significant fluid collection. Bones/joints: Scattered Schmorl's nodes are noted. Likely mild disc degeneration at L5-S1. No fractures are seen. Soft tissues: There is a fat-containing umbilical hernia. The remaining visualized extra-abdominal soft tissues are unremarkable. Lymph nodes: Unremarkable. No enlarged lymph nodes. IMPRESSION: 1. No evidence of aortic dissection, abdominal aortic aneurysm, or other acute angiographic abnormality. 2. Findings concerning for acute cholecystitis. Correlate for focal right upper quadrant tenderness.
[2018-07-29] MEDS: Ondansetron 4 MG/2 ML VIAL IVP (10:03)
--- NOTE | 2018-07-29 10:09 | PHARADMIT ---
Admission Pharmacy Clinical Review acute cholecystitis Code Status Full Code Current Weight 90.2 kg Renally Cleared and Narrow Therapeutic Index Meds Crcl ~126.00 mL/min current meds okay QTc Value / Action Taken BP Control, Fever BP 132/88 afebrile Electrolytes reviewed within normal limits DVT Prophylaxis none Opiate Usage / Scheduled Bowel Regimen Ordered prn/no Plt/SCr for Heparin / Enoxaparin plt 250 SCr 0.79 INR for Warfarin n/a H/H stable, WBC/Bands h/h 14.3/41.2 wbc 9.68 Antibiotic appropriateness none Cultures and Sensitivities n/a Surgical ABX d/c within 24 hr will check on postop DM control / Insulin Dosing BG 115 none Heart Failure (Check EF%) (RAINER's, B-Block, Diuretics) none IV to PO Switch n/a Home Meds Reviewed yes Home Meds Not Ordered flovent, levalbuterol(PRN), montelukast, pantoprazole, ranitidine Comments surgery today
[2018-07-29] MEDS: Albuterol/Ipratropium 3 ML UPD VIAL (12:15)
[2018-07-29] MEDS: Lactated Ringers 1,000 ML 80 ML IV (12:47)
--- NOTE | 2018-07-29 13:01 | PDOC.CMIN ---
- If Service Date Differs Date of service: 07/29/18 Time of Service: 13:02 Care Management Initial Assess REASON FOR HOSPITALIZATION:: Cholecystitis PAST MEDICAL HISTORY/PAST SURGICAL HISTORY:: Asthma, Vasectomy PREVIOUS FUNCTIONAL STATUS/SOCIAL/FAMILY SUPPORTS:: Thang resides with his Gabi in [facility]. He is independent at baseline and works at the [facility] [employer]. Thang drives, and is able to manage ADL's CURRENT FUNCTIONAL STATUS:: Lying in bed this morning. Per Dr. Anderson will go to the OR for Cholecystectomy ADVANCE DIRECTIVES:: None on file Has patient been provided with information about the portal?: Yes Did the patient sign up for the portal?: No CODE STATUS:: Full Code INSURANCE COVERAGE / FINANCIAL ISSUES:: BCBS CURRENT HOME/COMMUNITY SERVICES/EQUIPMENT:: Currently Thang has no services or medical equipment in the community. PRIMARY CARE PHYSICIAN:: Jb Dang POTENTIAL DISCHARGE NEEDS:: F/U appointment with dr. Anderson PATIENT/FAMILY EDUCATION NEEDS:: Review DC instructions, any limitations, and ongoing DC planning discussion. Discuss Ask Me three ANTICIPATED BARRIERS TO DISCHARGE:: None identified at this time TRANSPORTATION:: Via private vehicle with adilson Ashley PLAN:: Return home with no anticipated services once medically cleared. Thang will F/U with Dr. Anderson and plan of care as prescribed. Adilson Ashley to transport when ready.
--- NOTE | 2018-07-29 13:12 | INITIAL_ITS ---
- If Service Date Differs Date of service: 07/29/18 Time of Service: 13:02 Care Management Initial Assess REASON FOR HOSPITALIZATION:: Cholecystitis PAST MEDICAL HISTORY/PAST SURGICAL HISTORY:: Asthma, Vasectomy PREVIOUS FUNCTIONAL STATUS/SOCIAL/FAMILY SUPPORTS:: Thang resides with his Gabi in [facility]. He is independent at baseline and works at the [facility] [employer]. Thang drives, and is able to manage ADL's CURRENT FUNCTIONAL STATUS:: Lying in bed this morning. Per Dr. Anderson will go to the OR for Cholecystectomy ADVANCE DIRECTIVES:: None on file Has patient been provided with information about the portal?: Yes Did the patient sign up for the portal?: No CODE STATUS:: Full Code INSURANCE COVERAGE / FINANCIAL ISSUES:: BCBS CURRENT HOME/COMMUNITY SERVICES/EQUIPMENT:: Currently Thang has no services or medical equipment in the community. PRIMARY CARE PHYSICIAN:: Jb Dang POTENTIAL DISCHARGE NEEDS:: F/U appointment with dr. Anderson PATIENT/FAMILY EDUCATION NEEDS:: Review DC instructions, any limitations, and ongoing DC planning discussion. Discuss Ask Me three ANTICIPATED BARRIERS TO DISCHARGE:: None identified at this time TRANSPORTATION:: Via private vehicle with adilson Ashley PLAN:: Return home with no anticipated services once medically cleared. Thang will F/U with Dr. Anderson and plan of care as prescribed. Adilson Ashley to transport when ready.
--- NOTE | 2018-07-29 14:03 | GB_PTH ---
PATIENT: Thang Linares LOC: U#:[id number] AGE/SX: 38/M ROOM: RE07/29/[address]: Surya Anderson DO : 1980 BED: A DIS: 07/30/2018 SPEC #: [id number] RECD: 07/31/18 12:50 STATUS: MJ REQ #: [id number] RIGOBERTO: 07/29/18 14:[address]: Surya Anderson DEPT: Surgical Specimen RECD BY: Delmis Simental ENTERED: 07/31/18 12:50 SP TYPE: GB OTHR DR: Jb Dang Tissues: 1 - GALLBLADDER Procedures: GROSS AND MICRO LEVEL 3 Comments: [id number]
[2018-07-29] MEDS: Cellulose,Oxidized 4X8 1 PACKET MC (14:05)
[2018-07-29] MEDS: Lidocaine 1% Pres-Free 5 ML VIAL 15 ML (14:28)
--- NOTE | 2018-07-29 14:31 | ROE_ITS ---
Date of service: 07/29/18 Time of Service: 14:30 Operative Note DATE OF PROCEDURE: 07/29/18 PRE-OP DIAGNOSIS: Acute Cholecystitis POST-OP DIAGNOSIS: other (Gangrenous Cholecystitis) PROCEDURE: Laparoscopic cholecystectomy SURGEON: Surya Anderson LAB ANIMAL TECHNOLOGIST: Sofi Landaverde ANESTHESIA: GETA (Lilian Holloway, EDGARDO ASA 2e, Mallampati II) ESTIMATED BLOOD LOSS: 50 PATHOLOGY: other (Gall bladder for pathology, gallbladder aspirate for culture) COMPLICATIONS: None Patient was transported to: PACU Patient's condition: stable Indications: 38-year-old male presenting to the emergency room with 5 days of progressively worsening right upper quadrant epigastric pain. The last 24 hours were the worst he started to develop some fever and chills, and had associated nausea, vomiting. He had a similar episode to this the month ago but it only lasted one day. Laboratory studies were fairly unremarkable except for a left shift liver function tests were normal. Diagnostic imaging with a CT of the abdomen and pelvis showed a thickened gallbladder wall with pericholecystic fluid consistent with cholecystitis, biliary tree was not dilated. It is recommended that Mr. Linares undergo surgery for intervention for his acute cholecystitis procedures were discussed with him, and the risks involved were also discussed. All his questions were answered to his satisfaction. Consent was obtained to proceed with laparoscopic cholecystectomy possible open cholecystectomy. Findings: Upon entering the abdomen the gallbladder is identified in the right upper quadrant was noted to have a thickened rind around this that had small islands of gangrene present particularly on the fundus of the gallbladder. The gallbladder was very thick and distended. The gallbladder was aspirated and the fluid sent for culture prior to attempts to manipulate it. It was subsequently removed laparoscopic. Procedure Description: The patient was brought to the pre-anesthesia staging area where [her] name and identification were confirmed. The patient was then brought to the operating room, and placed supine on the table. All bony prominence were padded. The patient received pre-operative antibiotics, Zosyn 3.375 g. An appropriate time out was performed addressing the patient's: identification, allergies, medications, antibiotics, blood bank, metal, and fire risks. An endotracheal tube was placed by the SERIALS LIBRARIAN, and sedation was titrated for effect. Once adequate sedation was achieved, the abdomen was prepped with chloroprep, and blocked draped in the standard sterile fashion. I began by making a 4mm linear, transverse, supraumbilical incision, blunt dissection was carried down to the linea alba which was grasped and elevated. A veress needle was then inserted into the abdomen, with its positioning checked by the saline drop test. The abdomen was then inflated to 15mmHg, initiallly and later to 18 mmHg without apparent incident. A 5mm trocar was then inserted into the abdomen, through the incision, under direct visualization. The area under the veress needle, and trocar insertion was inspected, and there was no apparent injury. The upper abdomen was then inspected 180 degrees. The Gallbladder was identified in the right upper quadrant; it was discolored, distended, with small islands of gangrene present, particularly on the fundus. The liver appeared normal, and no other acute pathology was identified. I then placed the remainder of my trocars under direct visualization. A 12 mm trocar was placed subxiphoid in the midline. Two 5mm trocars were placed in the RUQ, two centimeters subcostal. One was placed at the anterior axillary line, and the other was placed at the mid-clavicular line. The gallbladder was then grasped by the fundus which was elevated up over the dome of theliver. The patient was placed in reverse trendelenburg with left side down. The infundibulum was then exposed with some difficultly due to inflammation; subsequently, manipulated caudad, and laterally. This exposed the triangle of Calot. The peritoneum overlying the cystic duct, and artery was then stripped from proximal from the gallbladder to distal exposing the cystic duct and artery. These were then circumferentially dissected which exposed the critial view of the cystic duct, cystic artery, with liver behind. The cystic duct and artery were then clipped with to clips distal to the gallbladder, one clip proximal. The cystic duct and cystic artery were then divided between the proximal and distal clips. The gallbladder was then excised from the gallbladder fossa of the liver in the standard antegrade fashion. Once, the gallbladder was from the fossa, it was placed in a endocatch bag and removed from the abdomen. The right upper quadrant was then irrigated with 3 L of saline until the irrigant was clear. Hemostasis was obtained with cautery, and surgicel was used to re-enforce hemostasis in the fossa. The abdomen was then desufflated, and the trocars removed under direct visualization. The 12mm trocar fascia was closed with a 0 vicryl suture in a figure of eight fashion. All skin inscisions were closed with 4-0 vicryl in a subcuticular fashion. Local was infiltrated around all the incsions. All counts were reported as correct times two. The patient was extubated in the OR , and brought to the post ansthesia care unit in good condition.
[2018-07-29] MEDS: Lactated Ringers 1,000 ML 125 ML IV (17:54)
[2018-07-29] MEDS: Normal Saline Flush 10 ML SYR IVP (19:24)
[2018-07-29] MEDS: Lidocaine 2% Jelly 11 ML SYR UR (20:37)
[2018-07-29] MEDS: ACETAMINOPHEN 1,000 MG/100 ML BTL 400 MG IVPB (22:13)
[2018-07-30 00:35] VITALS: BP 133/73; PULSE 84; RESP 19; TEMP 36.5; O2SAT 98
[2018-07-30] MEDS: Normal Saline Flush 10 ML SYR IVP ×3 (00:55→11:28)
[2018-07-30] MEDS: Ketorolac 30 MG/ML VIAL IVP ×3 (00:56→11:28)
[2018-07-30] MEDS: Lactated Ringers 1,000 ML 125 ML IV ×2 (02:17→11:23)
[2018-07-30 03:30] VITALS: BP 104/66; PULSE 67; RESP 18; TEMP 36.7; O2SAT 99
[2018-07-30] MEDS: ACETAMINOPHEN 1,000 MG/100 ML BTL 400 MG IVPB ×2 (06:29→13:56)
[2018-07-30 07:14] VITALS: PULSE 69
[2018-07-30 07:19] LABS: Abs Immature Grans 0.03 k/cumm (0.0-0.09); Absolute Basophil Count 0.01 k/cumm (0.0-0.2); Absolute Lymphocyte Count 0.63 k/cumm (1.2-3.4); Absolute Neutrophil Count 8.88 k/cumm (1.2-6.7); Basophils % 0.1; HCT 36.9 % (40.0-50.0); HGB 12.6 g/dL (13.5-17.5); Immature Grans % 0.3; Lymphocytes % 5.8; Mean Corp. HGB Concentration 34.1 g/dL (32.0-36.0); Mean Corpuscular Hemoglobin 32.1 pg (27.0-33.0); Mean Corpuscular Volume 94.1 fL (80-95); Mean Platelet Volume 9.4 fL (8.0-11.0); Neutrophils % 81.8; Platelet Count 224 x1000/uL (130-400); RBC 3.92 m/cumm (4.50-6.00); RBC Distribution Width 12.4 % (11.8-14.1); White Blood Cell Count 10.85 k/cumm (4.4-10.8)
[2018-07-30 07:40] LABS: ALT 99 U/L (12-78); AST 69 U/L (15-37); Alkaline Phosphatase 75 U/L (46-116); Anion Gap 9.4 mmol/L (3-11); BUN 8 mg/dL (7-18); Bilirubin, Total 1.2 mg/dL (0.2-1.0); CO2 26.6 mmol/L (21.0-32.0); CREATININE 0.77 mg/dL (0.70-1.30); Calcium 8.2 mg/dL (8.5-10.1); Chloride 106 mmol/L (98-107); Glucose 117 mg/dL (70-100); Potassium 3.8 mmol/L (3.5-5.1); Sodium 142 mmol/L (136-145); Total Protein 6.6 g/dL (6.4-8.2)
[2018-07-30 07:55] VITALS: BP 112/72; PULSE 85; RESP 18; TEMP 36.8; O2SAT 100
[2018-07-30 10:35] VITALS: PULSE 106
[2018-07-30 11:00] VITALS: BP 119/73; PULSE 65; RESP 18; TEMP 36.8; O2SAT 96
--- NOTE | 2018-07-30 11:30 | PGE_ITS ---
Date of service: 07/30/18 Time of Service: 08:00 Assessment and Plan (1) Acute cholecystitis: Start date: 07/24/18 Current visit: Yes Status: Acute 1. Acute cholecystitis?Will continue IV Zosyn until discharge then changed to oral Augmentin. 2. Laparoscopic cholecystectomy?continue DVT prophylaxis, pulmonary toilet, ambulation. 3. Asthma?duo nebs ordered as needed we will restart his Singulair 4. Urinary retention?Monroy catheter placed overnight, remove this morning patient already voiding on his own. 5. Bilirubin?total bili 1.2 today, will recheck, if patient goes home will check as outpatient. 6. Diet?will advance to low-fat diet. 7. Pain?patient seems to be doing well with Tylenol and ibuprofen will send him home on this. 8. Disposition?anticipate discharge home today. Subjective Patient reports: no new complaints, feels better, tolerating liquids well and flatus; denies nausea and vomiting Interval history since last seen: 38-year-old male status post laparoscopic cholecystectomy for gangrenous cholecystitis did well overnight. He did have difficulty voiding last night with bladder scan showing 600+ cc of urine in his bladder. He was also tachycardic up to 142. Monroy catheter was placed to decompress his bladder. After placement his Monroy catheter his tachycardia resolved as did his hypertension and most of his discomfort. This morning he feels much better denies fever, chills, nausea, vomiting. He is passing flatus Exam Const General: cooperative and comfortable Nutritional Appearance: average body habitus and well nourished Orientation: alert, awake and oriented x3 Resp Effort & Inspection: normal respiratory effort, no audible wheezes, not labored and not tachypneic Cardio Rate: regular rate Rhythm: regular rhythm GI Inspection: non-distended and incision (clean, dry, and intact, except subxiphoid dressing with shadowing) Palpation: soft, no guarding and tender (Tender palpation over incisions as appropriate.) Skin General skin exam: no rashes or lesions noted and turgor normal Objective Objective Clinical Data: Vital Signs Temperature 36.8 C 07/30/18 11:00 Temperature Source Tympanic 07/30/18 11:00 Pulse 65 07/30/18 11:00 Pulse Rhythm Regular 07/30/18 09:43 Respiratory Rate 18 07/30/18 11:00 Respiratory Effort 07/30/18 09:43 Respiratory Depth Normal 07/30/18 09:43 Respiratory Pattern Normal 07/30/18 09:43 Blood Pressure 119/73 07/30/18 11:00 Pulse Oximetry 96 07/30/18 11:00 Respiratory End-tidal CO2 35 07/29/18 15:23 Oxygen Delivery Method Room Air 07/30/18 11:00 Oxygen Flow Rate 0 07/30/18 11:00 Pain Level 0 07/30/18 07:23 Comment 07/29/18 20:19 Intake & Output 07/29/18 07/30/18 07/30/18 18:59 06:59 18:59 Intake Total 3397.667 / 3397.667 1504.166 / 1504.166 240 / 240 Output Total 400 / 400 1100 / 1100 500 / 500 Balance 2997.667 / 2997.667 404.166 / 404.166 -260 / -260 Intake: IV 3037.667 / 3037.667 1254.166 / 1254.166 Oral 360 / 360 250 / 250 240 / 240 Output: Urine 400 / 400 1100 / 1100 500 / 500 Other: Urine Color Yellow Yellow Yellow [place] Urine Appearance Clear Clear Clear Comment post void, pt took hat out of toilet so do not know how much he voided. Pt states that he voided well and feels as if he emptied well pt unable to void, pt states that he feels some discomfort from not being to void. Bladder scanned for [id number] Emesis Description None Voiding Methods Toilet Toilet Laboratory Results - last 24 hr 07/30/18 07/30/18 06:45 06:45 WBC 10.85 H RBC 3.92 L Hgb 12.6 L Hct 36.9 L MCV 94.1 MCH 32.1 MCHC 34.1 RDW 12.4 Plt Count 224 MPV 9.4 Immature Gran % 0.3 Neutrophils % 81.8 Lymphocytes % 5.8 Monocytes % 12.0 Eosinophils % 0.0 Basophils % 0.1 Absolute Neutrophils 8.88 H Absolute Lymphocytes 0.63 L Absolute Monocytes 1.30 H Absolute Eosinophils 0.00 Absolute Basophils 0.01 Sodium 142 Potassium 3.8 Chloride 106 Carbon Dioxide 26.6 Anion Gap 9.4 BUN 8 Creatinine 0.77 Estimated GFR/1.73 m2 >= 60.00 Glucose 117 H Calcium 8.2 L Total Bilirubin 1.2 H AST 69 H ALT 99 H Alkaline Phosphatase 75 Total Protein 6.6 Albumin 3.0 L Reviewed Pertinent PMH: Yes
--- NOTE | 2018-07-30 13:48 | CMDISCH_ITS ---
- If Service Date Differs Date of service: 07/30/18 Time of Service: 13:46 LACE Index Scoring Tool - Questions: Length of Stay (in days): 2 Acuity (Admit via E.D.?): Yes E.D. Visits: 2 - Answers: Total Score: 7 Risk of Readmission: Low Risk Care Management Discharge Reason for Hospitalization: Cholecystitis Discharge Plan: Thang will return home with no anticipated services. He will F/ U with Dr. Anderson and plan of care as prescribed. Thang's family will transport. Patient/Family Education Needs: Review DC instructions, any limitations, and review Ask Me Three
--- NOTE | 2018-07-30 16:15 | W.PM.DS.N ---
Date of service: 07/30/18 Time of Service: 16:15 DS: Diagnosis Discharge Diagnosis (1) Acute cholecystitis: Status: Acute Discharge Plan Disposition Patient Disposition: HOME Condition: Stable Discharge Details Chief Complaint: Abd Prob Reason For Visit: ABDOMIN PAIN, CHOLECYSTITIS Admit Date/Time: 07/29/18 02:01 Admit Provider: Surya Anderson Attending Provider: Surya Anderson Primary Care Provider: Jb Dang ED Provider: [facility] Hospital Course: Procedures: Laparoscopic cholecystectomy HPI: 38-year-old male presenting to the emergency room with 5 days of epigastric abdominal pain with associated nausea and vomiting. Initial onset of pain was 5 days ago, since then he has had a general malaise. In the last 24 hours his pain is progressed significantly to the point where he required presentation to the emergency room. He did have a similar attack approximately a month ago. Both of these episodes of onset of pain were within hours of eating dinner. He thinks he had cheese in both instances. He denies any sick contacts and has tried no new foods. He does state that he felt very feverish this morning, with chills. Surgery was consulted to evaluate Hospital Course: Patient underwent laparoscopic cholecystectomy without complications, please see separate operative report for full details. His diet was advanced as tolerated. His pain control was transitioned from IV to p.o. He was up walking at his baseline within 24 hours, and he remained afebrile throughout his stay. Postoperatively he did have a short period of retention with bladder scan showing over 600 mils of urine in his bladder and being unable to void. Monroy catheter was placed overnight and removed in the morning. He had no further episodes of retention. Postop day 1 he was tolerating a p.o. diet pain control with oral pain medication he was ambulating at baseline he been afebrile. He was discharged home, laboratory studies to be drawn tomorrow. He will completed oral course of antibiotics for 10 day total. Home Meds and New Rx's Prescriptions: New oxycodone 5 mg Tablet 5 mg PO Q6H PRN PRNQty: 5 RF: 0 amoxicillin-pot clavulanate 875-125 mg tablet 1 tab PO BID Qty: 18 RF: 0 Continue montelukast [Singulair] 10 MG tablet 10 mg PO BOLUS RF: 0 fluticasone [Flovent HFA] 120 PUFF HFA aerosol inhaler 2 puff Inhalation BID RF: 0 levalbuterol tartrate [Xopenex HFA] 200 PUFF HFA aerosol inhaler 2 puff Inhalation PRN PRNRF: 0 Discontinued pantoprazole 40 mg tablet,delayed release (DR/EC) 40 mg PO BID Qty: 60 RF: 0 ranitidine HCl 300 mg capsule 300 mg PO DAILY Qty: 30 RF: 0 Discharge Instructions Instructions: Laparoscopic Cholecystectomy (DC) Additional Instructions: Dr. Surya Anderson Post-Operative Discharge Instructions 1. Because there will be medication in your system for the next 24 hours, you may feel a little sleepy. Your coordination will be affected. Therefore: Do not drive or operate dangerous equipment for 24 hours. Do not drink alcohol beverages for 24 hours (not even beer). Plan to go home and rest for the day. Restrictions: Do not lift, push, or pull, over 20lbs for 2 weeks. No strenuous bending or twisting for 2 weeks, if it hurts stop. No baths, you can shower. Let warm soapy water run over wound, then pat wound dry. Activity: The day of surgery spend most of the day resting in a comfortable bed or recliner. 2-3 times during the day get up and walk around the house. The day after surgery, or after your discharge, walk at least 3 times a day and spend increasing amounts of time walking and sitting up. If you are tired rest, but keep moving as able. Continue Incentive Spirometry at home if you were performing this therapy in the hospital. Diet: Resume home diet as tolerated. Start with a light diet, your appetite will improve with time. Drink at least 4-6 glasses of water per day to keep hydrated. Wound Care: Removed dressing in 24 hrs, leave steri-strips to fall off. You may cover the wound with a dry sterile dressing to keep clothing from rubbing against the wound. Continue all your regular medications unless directed otherwise. Call the office or the Hospital Power System Operator , If you have: Pain not controlled with pain medication. Nausea and vomiting. Temperature greater than 101 degrees Fahrenheit. Drainage from your wound that soaks through your dressing. *No more than 4000 milligrams of Tylenol in 24 hours. Narcotic pain medication can be constipating, if you have not had a bowel movement within 3 days use a laxative, I recommend Milk of Magnesia (MOM) 1oz. every 6 hrs until you have a bowel movement. I understand the above instructions and have no questions. Signature of Patient or Responsible Adult Escort Date/Time Name of Responsible Adult Escort Signature of Nurse Date/Time Revised 03/01/11 Care Plan Goals: Home on antibiotics Stand Alone Forms: Nursing Discharge Form Referrals: Jb Dang [Primary Care Provider] - (follow up in 2-3 weeks for post-operative check up) Surya Anderson DO [ [facility] STAFF PHYSICIAN] - 08/07/18 2:15 pm (Fojllow up after laparoscopic cholecystectomy for gangrenous cholecystitis) Activity:: see instructions Equipment/Supplies:: No Equipment Needed Discharge Orders Discharge Orders: Discharge Order (Routine); Ordered 07/30/18 Ordered By: Surya Anderson Other Ambulatory Orders: Comprehensive Metabolic Panel (Routine) Timeframe: 1 Week Facility: [facility] - Location: Laboratory Outpatient Ordered By: Surya L Anderson Discharge Data Discharge Date/Time-TO BE ENTERED AT DEPARTURE: 07/30/18 15:08 DS: Summary Status at Discharge Functional status at discharge: independent ambulation Overall status at discharge: patient is progressing back to baseline Time Spent with Patient Less than 30 minutes Exam Const General: cooperative, healthy appearing and comfortable Nutritional Appearance: overweight Orientation: alert, awake and oriented x3 HENMT Head: normocephalic and atraumatic Ears: hearing grossly normal bilaterally Face and sinus: normal facial exam Eyes General: appearance normal, both eyes and all related structures Sclera: sclerae normal Pupils: PERRL EOM: EOM intact bilaterally Chest Chest: normal inspection of the chest Resp Effort & Inspection: normal respiratory effort, no audible wheezes and not labored Cardio Jugular venous pressure: no JVD Palpation: normal PMI Rate: regular rate GI Inspection: non-distended and incision (clean, dry, intact, shadowin of subxiphoid dressing) Palpation: soft, no guarding and nontender DS: Data Vitals/I&O Vitals and I&O: Vital Signs Temperature 36.8 C 07/30/18 11:00 Temperature Source Tympanic 07/30/18 11:00 Pulse 65 07/30/18 11:00 Pulse Rhythm Regular 07/30/18 09:43 Respiratory Rate 18 07/30/18 11:00 Respiratory Effort 07/30/18 09:43 Respiratory Depth Normal 07/30/18 09:43 Respiratory Pattern Normal 07/30/18 09:43 Blood Pressure 119/73 07/30/18 11:00 Pulse Oximetry 96 07/30/18 11:00 Respiratory End-tidal CO2 35 07/29/18 15:23 Oxygen Delivery Method Room Air 07/30/18 11:00 Oxygen Flow Rate 0 07/30/18 11:00 Pain Level 0 07/30/18 07:23 Comment 07/29/18 20:19 Intake & Output 07/29/18 07/30/18 07/30/18 18:59 06:59 18:59 Intake Total 3397.667 / 3397.667 1504.166 / 1677.915 6931.917 / 2702.917 Output Total 400 / 400 1100 / 1100 1000 / 1000 Balance 2997.667 / 2997.667 404.166 / 128.027 2529.917 / 1702.917 Intake: IV 3037.667 / 3037.667 1254.166 / 6511.628 4577.917 / 1622.917 Oral 360 / 360 250 / 250 1080 / 1080 Output: Urine 400 / 400 1100 / 1100 1000 / 1000 Other: Urine Color Yellow Yellow Yellow [place] Urine Appearance Clear Clear Clear Comment post void, pt took hat out of toilet so do not know how much he voided. Pt states that he voided well and feels as if he emptied well pt unable to void, pt states that he feels some discomfort from not being to void. Bladder scanned for 491cc-657cc Emesis Description None Voiding Methods Toilet Toilet Toilet Pending studies at discharge: WBC 10.85 k/cumm (4.4-10.8) H 07/30/18 06:45 RBC 3.92 m/cumm (4.50-6.00) L 07/30/18 06:45 Hgb 12.6 g/dL (13.5-17.5) L 07/30/18 06:45 Hct 36.9 % (40.0-50.0) L 07/30/18 06:45 MCV 94.1 fL (80-95) 07/30/18 06:45 MCH 32.1 pg (27.0-33.0) 07/30/18 06:45 MCHC 34.1 g/dL (32.0-36.0) 07/30/18 06:45 RDW 12.4 % (11.8-14.1) 07/30/18 06:45 Plt Count 224 x1000/uL (130-400) 07/30/18 06:45 MPV 9.4 fL (8.0-11.0) 07/30/18 06:45 Immature Gran % 0.3 07/30/18 06:45 Neutrophils % 81.8 07/30/18 06:45 Lymphocytes % 5.8 07/30/18 06:45 Monocytes % 12.0 07/30/18 06:45 Eosinophils % 0.0 07/30/18 06:45 Basophils % 0.1 07/30/18 06:45 Absolute Neutrophils 8.88 k/cumm (1.2-6.7) H 07/30/18 06:45 Absolute Lymphocytes 0.63 k/cumm (1.2-3.4) L 07/30/18 06:45 Absolute Monocytes 1.30 k/cumm (0.11-0.7) H 07/30/18 06:45 Absolute Eosinophils 0.00 k/cumm (0.0-0.7) 07/30/18 06:45 Absolute Basophils 0.01 k/cumm (0.0-0.2) 07/30/18 06:45 Sodium 142 mmol/L (136-145) 07/30/18 06:45 Potassium 3.8 mmol/L (3.5-5.1) 07/30/18 06:45 Chloride 106 mmol/L (98-107) 07/30/18 06:45 Carbon Dioxide 26.6 mmol/L (21.0-32.0) 07/30/18 06:45 Anion Gap 9.4 mmol/L (3-11) 07/30/18 06:45 BUN 8 mg/dL (7-18) 07/30/18 06:45 Creatinine 0.77 mg/dL (0.70-1.30) 07/30/18 06:45 Estimated GFR/1.73 m2 >= 60.00 (mL/min/1.73m2) 07/30/18 06:45 Glucose 117 mg/dL (70-100) H 07/30/18 06:45 Calcium 8.2 mg/dL (8.5-10.1) L 07/30/18 06:45 Total Bilirubin 1.2 mg/dL (0.2-1.0) H 07/30/18 06:45 AST 69 U/L (15-37) H 07/30/18 06:45 ALT 99 U/L (12-78) H 07/30/18 06:45 Alkaline Phosphatase 75 U/L (46-116) 07/30/18 06:45 Total Protein 6.6 g/dL (6.4-8.2) 07/30/18 06:45 Albumin 3.0 g/dL (3.4-5.0) L 07/30/18 06:45 Lipase 194 U/L (73-393) 07/28/18 23:30 Labs on day of discharge: Labs from last 24 hours 07/30/18 07/30/18 06:45 06:45 WBC 10.85 H RBC 3.92 L Hgb 12.6 L Hct 36.9 L MCV 94.1 MCH 32.1 MCHC 34.1 RDW 12.4 Plt Count 224 MPV 9.4 Immature Gran % 0.3 Neutrophils % 81.8 Lymphocytes % 5.8 Monocytes % 12.0 Eosinophils % 0.0 Basophils % 0.1 Absolute Neutrophils 8.88 H Absolute Lymphocytes 0.63 L Absolute Monocytes 1.30 H Absolute Eosinophils 0.00 Absolute Basophils 0.01 Sodium 142 Potassium 3.8 Chloride 106 Carbon Dioxide 26.6 Anion Gap 9.4 BUN 8 Creatinine 0.77 Estimated GFR/1.73 m2 >= 60.00 Glucose 117 H Calcium 8.2 L Total Bilirubin 1.2 H AST 69 H ALT 99 H Alkaline Phosphatase 75 Total Protein 6.6 Albumin 3.0 L Preliminary micro results at discharge 07/29/18 13:30 Surgical Culture - Preliminary Gallbladder - Bile Gram Positive Abril
--- NOTE | 2018-07-30 16:18 | DSE_ITS ---
Date of service: 07/30/18 Time of Service: 16:15 DS: Diagnosis Discharge Diagnosis (1) Acute cholecystitis: Status: Acute Discharge Plan Disposition Patient Disposition: HOME Condition: Stable Discharge Details Chief Complaint: Abd Prob Reason For Visit: ABDOMIN PAIN, CHOLECYSTITIS Admit Date/Time: 07/29/18 02:01 Admit Provider: Surya Anderson Attending Provider: Surya Anderson Primary Care Provider: Jb Dang ED [facility] Hospital Course: Procedures: Laparoscopic cholecystectomy HPI: 38-year-old male presenting to the emergency room with 5 days of epigastric abdominal pain with associated nausea and vomiting. Initial onset of pain was 5 days ago, since then he has had a general malaise. In the last 24 hours his pain is progressed significantly to the point where he required presentation to the emergency room. He did have a similar attack approximately a month ago. Both of these episodes of onset of pain were within hours of eating dinner. He thinks he had cheese in both instances. He denies any sick contacts and has tried no new foods. He does state that he felt very feverish this morning, with chills. Surgery was consulted to evaluate Hospital Course: Patient underwent laparoscopic cholecystectomy without complications, please see separate operative report for full details. His diet was advanced as tolerated. His pain control was transitioned from IV to p.o. He was up walking at his baseline within 24 hours, and he remained afebrile throughout his stay. Postoperatively he did have a short period of retention with bladder scan showing over 600 mils of urine in his bladder and being unable to void. Monroy catheter was placed overnight and removed in the morning. He had no further episodes of retention. Postop day 1 he was tolerating a p.o. diet pain control with oral pain medication he was ambulating at baseline he been afebrile. He was discharged home, laboratory studies to be drawn tomorrow. He will completed oral course of antibiotics for 10 day total. Home Meds and New Rx's Prescriptions: New oxycodone 5 mg Tablet 5 mg PO Q6H PRN PRNQty: 5 RF: 0 amoxicillin-pot clavulanate 875-125 mg tablet 1 tab PO BID Qty: 18 RF: 0 Continue montelukast [Singulair] 10 MG tablet 10 mg PO BOLUS RF: 0 fluticasone [Flovent HFA] 120 PUFF HFA aerosol inhaler 2 puff Inhalation BID RF: 0 levalbuterol tartrate [Xopenex HFA] 200 PUFF HFA aerosol inhaler 2 puff Inhalation PRN PRNRF: 0 Discontinued pantoprazole 40 mg tablet,delayed release (DR/EC) 40 mg PO BID Qty: 60 RF: 0 ranitidine HCl 300 mg capsule 300 mg PO DAILY Qty: 30 RF: 0 Discharge Instructions Instructions: Laparoscopic Cholecystectomy (DC) Additional Instructions: Dr. Surya Anderson Post-Operative Discharge Instructions 1. Because there will be medication in your system for the next 24 hours, you may feel a little sleepy. Your coordination will be affected. Therefore: * Do not drive or operate dangerous equipment for 24 hours. * Do not drink alcohol beverages for 24 hours (not even beer). * Plan to go home and rest for the day. Restrictions: * Do not lift, push, or pull, over 20lbs for 2 weeks. * No strenuous bending or twisting for 2 weeks, if it hurts stop. * No baths, you can shower. Let warm soapy water run over wound, then pat wound dry. Activity: * The day of surgery spend most of the day resting in a comfortable bed or recliner. 2-3 times during the day get up and walk around the house. * The day after surgery, or after your discharge, walk at least 3 times a day and spend increasing amounts of time walking and sitting up. If you are tired rest, but keep moving as able. * Continue Incentive Spirometry at home if you were performing this therapy in the hospital. Diet: * Resume home diet as tolerated. * Start with a light diet, your appetite will improve with time. * Drink at least 4-6 glasses of water per day to keep hydrated. Wound Care: * Removed dressing in 24 hrs, leave steri-strips to fall off. * You may cover the wound with a dry sterile dressing to keep clothing from rubbing against the wound. Continue all your regular medications unless directed otherwise. Call the office or the Hospital Tennis Coach , If you have: * Pain not controlled with pain medication. * Nausea and vomiting. * Temperature greater than 101 degrees Fahrenheit. * Drainage from your wound that soaks through your dressing. *No more than 4000 milligrams of Tylenol in 24 hours. Narcotic pain medication can be constipating, if you have not had a bowel movement within 3 days use a laxative, I recommend Milk of Magnesia (MOM) 1oz. every 6 hrs until you have a bowel movement. I understand the above instructions and have no questions. _ Signature of Patient or Responsible Adult Escort Date/Time _ Name of Responsible Adult Escort _ Signature of Nurse Date/Time Revised 03/01/11 Care Plan Goals: Home on antibiotics Stand Alone Forms: Nursing Discharge Form Referrals: Jb Dang [Primary Care Provider] - (follow up in 2-3 weeks for post- operative check up) Surya Anderson DO [ [facility] STAFF PHYSICIAN] - 08/07/18 2:15 pm (Fojllow up after laparoscopic cholecystectomy for gangrenous cholecystitis) Activity:: see instructions Equipment/Supplies:: No Equipment Needed Discharge Orders Discharge Orders: Discharge Order (Routine); Ordered 07/30/18 Ordered By: Surya Anderson Other Ambulatory Orders: Comprehensive Metabolic Panel (Routine) Timeframe: 1 Week Facility: [facility] - Location: Laboratory Outpatient Ordered By: Surya Anderson Discharge Data Discharge Date/Time-TO BE ENTERED AT DEPARTURE: 07/30/18 15:08 DS: Summary Status at Discharge Functional status at discharge: independent ambulation Overall status at discharge: patient is progressing back to baseline Time Spent with Patient Less than 30 minutes Exam Const General: cooperative, healthy appearing and comfortable Nutritional Appearance: overweight Orientation: alert, awake and oriented x3 HENMT Head: normocephalic and atraumatic Ears: hearing grossly normal bilaterally Face and sinus: normal facial exam Eyes General: appearance normal, both eyes and all related structures Sclera: sclerae normal Pupils: PERRL EOM: EOM intact bilaterally Chest Chest: normal inspection of the chest Resp Effort & Inspection: normal respiratory effort, no audible wheezes and not labored Cardio Jugular venous pressure: no JVD Palpation: normal PMI Rate: regular rate GI Inspection: non-distended and incision (clean, dry, intact, shadowin of subxiphoid dressing) Palpation: soft, no guarding and nontender DS: Data Vitals/I&O Vitals and I&O: Vital Signs Temperature 36.8 C 07/30/18 11:00 Temperature Source Tympanic 07/30/18 11:00 Pulse 65 07/30/18 11:00 Pulse Rhythm Regular 07/30/18 09:43 Respiratory Rate 18 07/30/18 11:00 Respiratory Effort 07/30/18 09:43 Respiratory Depth Normal 07/30/18 09:43 Respiratory Pattern Normal 07/30/18 09:43 Blood Pressure 119/73 07/30/18 11:00 Pulse Oximetry 96 07/30/18 11:00 Respiratory End-tidal CO2 35 07/29/18 15:23 Oxygen Delivery Method Room Air 07/30/18 11:00 Oxygen Flow Rate 0 07/30/18 11:00 Pain Level 0 07/30/18 07:23 Comment 07/29/18 20:19 Intake & Output 07/29/18 07/30/18 07/30/18 18:59 06:59 18:59 Intake Total 3397.667 / 3397.667 1504.166 / 1284.453 5051.917 / 2702.917 Output Total 400 / 400 1100 / 1100 1000 / 1000 Balance 2997.667 / 2997.667 404.166 / 004.107 1664.917 / 1702.917 Intake: IV 3037.667 / 3037.667 1254.166 / 8936.161 9142.917 / 1622.917 Oral 360 / 360 250 / 250 1080 / 1080 Output: Urine 400 / 400 1100 / 1100 1000 / 1000 Other: Urine Color Yellow Yellow Yellow Mack Urine Appearance Clear Clear Clear Comment post void, pt took hat out of toilet so do not know how much he voided. Pt states that he voided well and feels as if he emptied well pt unable to void, pt states that he feels some discomfort from not being to void. Bladder scanned for 491cc-657cc Emesis Description None Voiding Methods Toilet Toilet Toilet Pending studies at discharge: WBC 10.85 k/cumm (4.4-10.8) H 07/30/18 06:45 RBC 3.92 m/cumm (4.50-6.00) L 07/30/18 06:45 Hgb 12.6 g/dL (13.5-17.5) L 07/30/18 06:45 Hct 36.9 % (40.0-50.0) L 07/30/18 06:45 MCV 94.1 fL (80-95) 07/30/18 06:45 MCH 32.1 pg (27.0-33.0) 07/30/18 06:45 MCHC 34.1 g/dL (32.0-36.0) 07/30/18 06:45 RDW 12.4 % (11.8-14.1) 07/30/18 06:45 Plt Count 224 x1000/uL (130-400) 07/30/18 06:45 MPV 9.4 fL (8.0-11.0) 07/30/18 06:45 Immature Gran % 0.3 07/30/18 06:45 Neutrophils % 81.8 07/30/18 06:45 Lymphocytes % 5.8 07/30/18 06:45 Monocytes % 12.0 07/30/18 06:45 Eosinophils % 0.0 07/30/18 06:45 Basophils % 0.1 07/30/18 06:45 Absolute Neutrophils 8.88 k/cumm (1.2-6.7) H 07/30/18 06:45 Absolute Lymphocytes 0.63 k/cumm (1.2-3.4) L 07/30/18 06:45 Absolute Monocytes 1.30 k/cumm (0.11-0.7) H 07/30/18 06:45 Absolute Eosinophils 0.00 k/cumm (0.0-0.7) 07/30/18 06:45 Absolute Basophils 0.01 k/cumm (0.0-0.2) 07/30/18 06:45 Sodium 142 mmol/L (136-145) 07/30/18 06:45 Potassium 3.8 mmol/L (3.5-5.1) 07/30/18 06:45 Chloride 106 mmol/L (98-107) 07/30/18 06:45 Carbon Dioxide 26.6 mmol/L (21.0-32.0) 07/30/18 06:45 Anion Gap 9.4 mmol/L (3-11) 07/30/18 06:45 BUN 8 mg/dL (7-18) 07/30/18 06:45 Creatinine 0.77 mg/dL (0.70-1.30) 07/30/18 06:45 Estimated GFR/1.73 m2 >= 60.00 (mL/min/1.73m2) 07/30/18 06:45 Glucose 117 mg/dL (70-100) H 07/30/18 06:45 Calcium 8.2 mg/dL (8.5-10.1) L 07/30/18 06:45 Total Bilirubin 1.2 mg/dL (0.2-1.0) H 07/30/18 06:45 AST 69 U/L (15-37) H 07/30/18 06:45 ALT 99 U/L (12-78) H 07/30/18 06:45 Alkaline Phosphatase 75 U/L (46-116) 07/30/18 06:45 Total Protein 6.6 g/dL (6.4-8.2) 07/30/18 06:45 Albumin 3.0 g/dL (3.4-5.0) L 07/30/18 06:45 Lipase 194 U/L (73-393) 07/28/18 23:30 Labs on day of discharge: Labs from last 24 hours 07/30/18 07/30/18 06:45 06:45 WBC 10.85 H RBC 3.92 L Hgb 12.6 L Hct 36.9 L MCV 94.1 MCH 32.1 MCHC 34.1 RDW 12.4 Plt Count 224 MPV 9.4 Immature Gran % 0.3 Neutrophils % 81.8 Lymphocytes % 5.8 Monocytes % 12.0 Eosinophils % 0.0 Basophils % 0.1 Absolute Neutrophils 8.88 H Absolute Lymphocytes 0.63 L Absolute Monocytes 1.30 H Absolute Eosinophils 0.00 Absolute Basophils 0.01 Sodium 142 Potassium 3.8 Chloride 106 Carbon Dioxide 26.6 Anion Gap 9.4 BUN 8 Creatinine 0.77 Estimated GFR/1.73 m2 >= 60.00 Glucose 117 H Calcium 8.2 L Total Bilirubin 1.2 H AST 69 H ALT 99 H Alkaline Phosphatase 75 Total Protein 6.6 Albumin 3.0 L Preliminary micro results at discharge 07/29/18 13:30 Surgical Culture - Preliminary Gallbladder - Bile Gram Positive Abril
== END 2018-07-30 15:08 | disposition home or self-care (01) ==
LOC: ER 07-29 02:09 → MS 07-29 02:46
PROVIDERS: Admitting Provider Surgery; Emergency Provider Emergency Medicine; PCP Family Medicine; Visit Provider Surgery
PROC: 0FT44ZZ Resection of Gallbladder, Percutaneous Endoscopic Approach (ICD-10-PCS; CPT 47562; principal; 2018-07-29 11:30)
DX: K80.12 Calculus of gallbladder with acute and chronic cholecystitis without obstruction (principal); N99.89 Other postprocedural complications and disorders of genitourinary system; R33.8 Other retention of urine; J45.909 Unspecified asthma, uncomplicated; R00.0 Tachycardia, unspecified; I95.81 Postprocedural hypotension
CPT/HCPCS: 47562; 36415; 74177; 80053; 83690; 96361; 96365; 96375; 96376; 99223; 99231; 99238; 99285; 85025; 87070; 87205; 88304; G0378; J0131; J1100; J1885; J2250; J2405; J2543; J3010; J3490; J7620

== ENCOUNTER 2018-08-01 08:55 | Outpatient (CLI) | payer BC, SELFPAY ==
[2018-08-01 10:44] LABS: ALT 60 U/L (12-78); AST 21 U/L (15-37); Albumin 3.2 g/dL (3.4-5.0); Alkaline Phosphatase 68 U/L (46-116); Anion Gap 10.5 mmol/L (3-11); BUN 10 mg/dL (7-18); Bilirubin, Total 0.4 mg/dL (0.2-1.0); CO2 26.5 mmol/L (21.0-32.0); CREATININE 0.91 mg/dL (0.70-1.30); Calcium 8.4 mg/dL (8.5-10.1); Chloride 105 mmol/L (98-107); Glucose 104 mg/dL (70-100); Sodium 142 mmol/L (136-145); Total Protein 6.5 g/dL (6.4-8.2)
== END 2018-08-01 09:15 ==
PROVIDERS: PCP Family Medicine; Visit Provider Surgery
DX: K81.0 Acute cholecystitis (principal)
CPT/HCPCS: 36415; 80053

== ENCOUNTER 2022-08-03 09:51 | Emergency (ER) | payer BC, SELFPAY ==
[2022-08-03] VITALS (27 sets, daily range): BP systolic 113–164; BP diastolic 62–105; PULSE 66–105; RESP 12–25; O2SAT 95–99
--- NOTE | 2022-08-03 09:45 | RT.EKG_ITS ---
APPROVED REPORT Exam: Resting ECG Reason for Exam: Chest pain Patient Location: E HR:108 bpm ECG Measurements Heart Rate 108 AXIS TX 146 P 30 QRSd 88 QRS -28 QT 327 T 32 QTc 439 Conclusion Sinus tachycardia. No acute st changes
--- NOTE | 2022-08-03 10:00 | DI.RAD_ITS ---
Exam(s) XR CHEST 2V PA LATERAL EXAM: XR CHEST 2V PA LATERAL CLINICAL HISTORY: chest pain TECHNIQUE: 2D digital imaging was performed of the chest. Two images were obtained. PA and lateral views were obtained. COMPARISON: No exams were available for comparison FINDINGS: MEDIASTINUM: Normal. HEART: Normal. PULMONARY VASCULATURE: Normal. LUNGS: Clear. PLEURAL SPACE: No pleural effusion or pneumothorax. BONE:Within normal limits for the patient's age. OTHER FINDINGS:Normal. IMPRESSION: No acute pulmonary findings. DATA REPOSITORY: RADIATION DOSE DELIVERED:
--- NOTE | 2022-08-03 10:09 | ED.GENADUL_ITS ---
Discharge Plan Disposition Patient Disposition: HOME Condition: Stable Discharge Details Clinical Impression: Left chest pressure Primary Care Provider: Jb Dang ED Provider: Chinmay Alejandro Home Meds and New Rx's Prescriptions: Continued montelukast [Singulair] 10 MG tablet 10 mg PO BOLUS fluticasone propionate [Flovent HFA] 120 PUFF HFA aerosol inhaler 2 puff Inhalation BID levalbuterol tartrate [Xopenex HFA] 200 PUFF HFA aerosol inhaler 2 puff Inhalation PRN PRN Discharge Instructions Instructions: Chest Pain (ED) Additional Instructions: Work-up in the ER has been unremarkable for any obvious emergent process. I am setting you up with an outpatient Holter monitor, our respiratory therapy team should be reaching out to you shortly to set this up. Please watch for new or worsening symptoms and return to the ER for any concerns. Lastly, please contact your primary care provider later today or tomorrow to discuss your ER visit and need for outpatient reevaluation. Further testing such as echocardiogram and/or outpatient stress test may be indicated for further evaluation. Discharge Orders Other Ambulatory Orders: Holter Monitor (NOW) Timeframe: [id number] Facility: [facility] - Location: Respiratory Therapy Ordered By: Chinmay Alejandro Medical Decision Making This is a 42-year-old male, past sickle history of asthma, reporting what he described as left anterior chest wall spasm or twitching last night, resolved, this morning had left sided chest pressure which went into his back, resolved spontaneously he is currently asymptomatic. He has not a smoker, denies any history of cardiac disease. Clinically he appears well, nontoxic. Clinically low suspicion for ACS, low risk factors, etc. Will obtain IV access, give full dose aspirin, initiate cardiac work-up including a D-dimer. Initial labs unremarkable. Chest x-ray unremarkable. Patient agreeable to awaiting a delta troponin. D-dimer of 205, will not pursue CTA of the chest. Patient remains asymptomatic Delta troponin remains less than 50 Upon reevaluation patient remains asymptomatic. We discussed his work-up today. I will set him up for an outpatient 48-hour Holter monitor as well. He plans to contact his primary care provider later today or tomorrow to set up outpatient appointment, we discussed further cardiac assessment such as echocardiogram and/or stress test may be indicated. Standard discharge and return precautions were provided. Patient understands, is agreeable to this plan, and has no additional questions or concerns upon discharge. This documentation was generated using [employer] dictation system, please disregard any oddities of phrase or misspellings. Medical Records Medical records reviewed: Yes I reviewed the patient's medical records. Imaging Data Radiologic Study: Attestation: I personally reviewed and interpreted this imaging study as follows: Imaging: X-Ray Radiologist's impression: Exam(s) XR CHEST 2V PA LATERAL EXAM: XR CHEST 2V PA LATERAL CLINICAL HISTORY: chest pain TECHNIQUE: 2D digital imaging was performed of the chest. Two images were obta ined. PA and lateral views were obtained. COMPARISON: No exams were available for comparison FINDINGS: MEDIASTINUM: Normal. HEART: Normal. PULMONARY VASCULATURE: Normal. LUNGS: Clear. PLEURAL SPACE: No pleural effusion or pneumothorax. BONE:Within normal limits for the patient's age. OTHER FINDINGS:Normal. IMPRESSION: No acute pulmonary findings. Lab Data Lab results reviewed: Yes I reviewed the patient's lab results. Labs: Laboratory Tests Range/Units 08/03/22 08/03/22 08/03/22 10:15 10:15 10:15 WBC (4.4-10.8) 10^3/uL 4.75 RBC (4.36-5.78) 10^6/uL 4.79 Hgb (13.5-17.5) g/dL 15.2 Hct (40.0-50.0) % 43.6 MCV (80-95) fL 91 MCH (27.0-33.0) pg 31.7 MCHC (32.0-36.0) % 34.9 RDW (11.8-14.1) % 11.9 Plt Count (130-400) 10^3/uL 244 MPV (8.0-11.0) fL 8.4 Immature Gran % 0.2 Neutrophils % 57.3 Lymphocytes % 29.9 Monocytes % 9.5 Eosinophils % 2.3 Basophils % 0.8 Nucleated RBC % (0.0-0.3) % 0.0 Absolute Neutrophils (1.2-6.7) 10^3/uL 2.72 Absolute Lymphocytes (1.2-3.4) 10^3/uL 1.42 Absolute Monocytes (0.1-0.8) 10^3/uL 0.45 Absolute Eosinophils (0.0-0.7) 10^3/uL 0.11 Absolute Basophils (0.0-0.2) 10^3/uL 0.04 PT (9.3-11.0) sec 9.8 INR (0.9-1.1) 1.0 APTT (21.0-27.5) sec 24.9 D-Dimer (<500) ng/mlFEU 205 Sodium (136-145) mmol/L 138 Potassium (3.5-5.1) mmol/L 3.7 Chloride (98-107) mmol/L 101 Carbon Dioxide (21.0-32.0) mmol/L 27.6 Anion Gap (3-11) mmol/L 9.4 BUN (7-18) mg/dL 9 Creatinine (0.70-1.30) mg/dL 0.9 Est GFR (CKD-EPI 2020) (mL/min/1.73m2) 108.01 Glucose (74-106) mg/dL 112 H Calcium (8.5-10.1) mg/dL 9.1 Magnesium (1.8-2.4) mg/dL 2.1 Total Bilirubin (0.2-1.0) mg/dL 1.0 AST (15-37) U/L 20 ALT (16-63) U/L 34 Alkaline Phosphatase (46-116) U/L 77 Troponin I (<or=60) ng/L < 50 Total Protein (6.4-8.2) g/dL 7.9 Albumin (3.4-5.0) g/dL 4.3 TSH (0.36-3.74) uIU/mL 2.25 COVID-19 Source SARS-CoV-2 (PCR) (Negative) Range/Units 08/03/22 08/03/22 10:19 12:22 WBC (4.4-10.8) 10^3/uL RBC (4.36-5.78) 10^6/uL Hgb (13.5-17.5) g/dL Hct (40.0-50.0) % MCV (80-95) fL MCH (27.0-33.0) pg MCHC (32.0-36.0) % RDW (11.8-14.1) % Plt Count (130-400) 10^3/uL MPV (8.0-11.0) fL Immature Gran % Neutrophils % Lymphocytes % Monocytes % Eosinophils % Basophils % Nucleated RBC % (0.0-0.3) % Absolute Neutrophils (1.2-6.7) 10^3/uL Absolute Lymphocytes (1.2-3.4) 10^3/uL Absolute Monocytes (0.1-0.8) 10^3/uL Absolute Eosinophils (0.0-0.7) 10^3/uL Absolute Basophils (0.0-0.2) 10^3/uL PT (9.3-11.0) sec INR (0.9-1.1) APTT (21.0-27.5) sec D-Dimer (<500) ng/mlFEU Sodium (136-145) mmol/L Potassium (3.5-5.1) mmol/L Chloride (98-107) mmol/L Carbon Dioxide (21.0-32.0) mmol/L Anion Gap (3-11) mmol/L BUN (7-18) mg/dL Creatinine (0.70-1.30) mg/dL Est GFR (CKD-EPI 2020) (mL/min/1.73m2) Glucose (74-106) mg/dL Calcium (8.5-10.1) mg/dL Magnesium (1.8-2.4) mg/dL Total Bilirubin (0.2-1.0) mg/dL AST (15-37) U/L ALT (16-63) U/L Alkaline Phosphatase (46-116) U/L Troponin I (<or=60) ng/L < 50 Total Protein (6.4-8.2) g/dL Albumin (3.4-5.0) g/dL TSH (0.36-3.74) uIU/mL COVID-19 Source Nasal/Nares SARS-CoV-2 (PCR) (Negative) Negative ECG Data Attestation: I personally reviewed and interpreted this ECG (s) as follows: Interpretation: Sinus tachycardia, ventricular rate of 108. No STEMI. HPI General Mode of arrival: ambulatory . Date/Time Provider Initiated Documentation: 08/03/22 09:55 . Limitations to Documentation: no limitations . Information obtained by: patient . HPI Narrative: This is a 42-year-old male, past medical history of asthma, presenting to the ER for concern of what he describes as left chest wall spasm last night, no pain, this morning spasm gone but feels a slight left chest pressure that goes into his back. Patient states nothing makes it worse or better, and he is currently asymptomatic. He denies recent illness or trauma, headache, fever, neck pain, radiation of pain to his abdomen or shoulder, down his arm, abdominal pain, nausea, vomiting, pain or swelling in his extremities, numbness, tingling, weakness. He has not taken any medication for his symptoms. He has never experienced this before. Related Data Home Medications Medication Instructions Recorded Confirmed fluticasone propionate 220 2 puff inhalation BID 07/04/15 08/03/22 mcg/actuation HFA aerosol inhaler (Flovent HFA) levalbuterol tartrate 45 2 puff inhalation PRN PRN 07/04/15 08/03/22 mcg/actuation aerosol inhaler (Xopenex HFA) montelukast 10 mg tablet 10 mg PO BOLUS 07/04/15 08/03/22 (Singulair) Allergies Allergy/AdvReac Type Severity Reaction Status Date / Time No Known Allergies Allergy Verified 08/03/22 10:01 General Stated Complaint: Chest Pain JEREMIAH: 2 Review of Systems Constitutional Constitutional: Denies fatigue, Denies fever(s), Denies headache(s) and Denies weakness ENT Ears, Nose, Mouth, and Throat: Denies headache(s) and Denies neck pain Cardiovascular Cardiovascular: Reports chest pain (Described as pressure) and Denies dyspnea Respiratory Respiratory: Denies cough and Denies dyspnea Gastrointestinal Gastrointestinal: Denies abdominal pain, Denies nausea and Denies vomiting Musculoskeletal Musculoskeletal: Reports back pain (Pressure), Denies neck pain, Denies numbness and Denies tingling Integumentary/Breasts Skin/Breast: Denies rash Neurologic Neurologic: Denies headache(s), Denies numbness, Denies tingling and Denies weakness Endocrine Endocrine: Denies fatigue Hematologic/Lymphatic Hematologic/Lymphatic: Denies easy bleeding and Denies easy bruising PFSH All Active Problems (Updated 08/03/22 @ 13:06 by EUGENIO Vegas) Left chest pressure (Acute) Postoperative follow-up (Acute ~07/2018) Acute cholecystitis (Acute) Asthma (Chronic) Medical History Asthma Social History Smoking/Tobacco Use Status: Never Smoking risk assessment performed?: Yes Alcohol Intake: current Alcohol Intake frequency: holidays/special occasions only Alcohol type: beer and wine Drug use: Never Substance use type: does not use Do you feel safe in your relationship?: Yes Exam Const General: cooperative, healthy appearing, comfortable and no acute distress Orientation: alert, awake and oriented x3 HENMT Head: normal to inspection, normocephalic and atraumatic Face and sinus: normal facial exam Mouth: moist mucous membranes Eyes General: appearance normal, both eyes and all related structures Conjunctivae: conjunctivae normal Neck Neck: normal visual inspection, full ROM, trachea midline, supple and nontender Chest Chest: normal inspection of the chest and normal palpation of entire chest wall Resp Effort & Inspection: normal respiratory effort and able to speak in complete sentences Auscultation: clear to auscultation bilaterally Cardio Rate: regular rate Rhythm: regular rhythm GI Palpation: soft and nontender Back/Spine/Pelvis Back: no CVA tenderness and No back tenderness Skin General skin exam: no rashes or lesions noted Neuro General: patient alert, patient awake, moves all extremities and no focal motor deficits Cognition: normal cognition Speech: speech normal Gait: normal gait Motor: muscle tone normal throughout Sensory Exam: no sensory deficits noted Extrem General: normal to inspection, full ROM, capillary refill normal, no pedal edema and no calf tenderness Psych Appearance: grossly normal Mental Status: mental status grossly normal Course Vital Signs Vital signs: Vital Signs Pulse 104 H 08/03/22 09:55 Respiratory Rate 18 08/03/22 09:55 Blood Pressure 164/105 H 08/03/22 09:55 Pulse Oximetry 99 08/03/22 09:55 Pulse 104 H 08/03/22 09:55 Respiratory Rate 18 08/03/22 09:55 Respiratory Effort 08/03/22 10:02 Blood Pressure 164/105 H 08/03/22 09:55 Blood Pressure Position Sitting 08/03/22 09:55 Pulse Oximetry 99 08/03/22 09:55 Oxygen Delivery Method Room Air 08/03/22 09:55 Oxygen Flow Rate 0 08/03/22 09:55 Pain Level 0 08/03/22 09:55 Comment 08/03/22 09:55 PAWSS Have you Been Recently Intoxicated or Drunk Within the Last 30 days?: No Have you Ever Experienced Previous Episodes of Alcohol Withdrawal?: No Have you ever Experienced Withdrawal Seizures?: No Have you ever Experienced Delirium Tremens(DT)s?: No Have you ever undergone Alcohol Rehabilitation Treatment (i.e, inpt ot outpatient treatment programs)?: No Have you ever Experienced Blackouts?: No Have you ever Combined Alcohol with other Downers within the last 90 days?: No Have you ever Combined Alcohol with any other Substance of Abuse during the last 90 days?: No Positive Blood Alcohol level on Presentation? [PCS.BAL]: No Evidence of Increased Autonomic Activity (i.e. HR>120, tremor, sweating, agitation, nausea)?: No Result: 0
[2022-08-03] MEDS: Aspirin 81 MG CHEW 324 MG CH (10:15)
[2022-08-03 10:21] LABS: Source Nasal/Nares
[2022-08-03 10:23] LABS: Abs Immature Grans 0.01 10^3/uL (0.0-0.06); Absolute Basophil Count 0.04 10^3/uL (0.0-0.2); Absolute Eosinophil Count 0.11 10^3/uL (0.0-0.7); Absolute Lymphocyte Count 1.42 10^3/uL (1.2-3.4); Absolute Monocyte Count 0.45 10^3/uL (0.1-0.8); Absolute Neutrophil Count 2.72 10^3/uL (1.2-6.7); Basophils % 0.8; Eosinophils % 2.3; HCT 43.6 % (40.0-50.0); HGB 15.2 g/dL (13.5-17.5); Immature Grans % 0.2; Lymphocytes % 29.9; MCH 31.7 pg (27.0-33.0); MCHC 34.9 % (32.0-36.0); MCV 91 fL (80-95); MPV 8.4 fL (8.0-11.0); Monocytes % 9.5; Neutrophils % 57.3; Platelet Count 244 10^3/uL (130-400); RBC 4.79 10^6/uL (4.36-5.78); RDW 11.9 % (11.8-14.1); WBC 4.75 10^3/uL (4.4-10.8)
[2022-08-03 10:46] LABS: PTT Activated 24.9 sec (21.0-27.5); Prothrombin Time 9.8 sec (9.3-11.0)
[2022-08-03 10:52] LABS: COVID-19 PCR Negative (Negative)
[2022-08-03 11:20] LABS: ALT 34 U/L (16-63); AST 20 U/L (15-37); Albumin 4.3 g/dL (3.4-5.0); Alkaline Phosphatase 77 U/L (46-116); Anion Gap 9.4 mmol/L (3-11); BUN 9 mg/dL (7-18); CO2 27.6 mmol/L (21.0-32.0); CREATININE 0.9 mg/dL (0.70-1.30); Calcium 9.1 mg/dL (8.5-10.1); Chloride 101 mmol/L (98-107); Estimated GFR 108.01 (mL/min/1.73m2); Glucose 112 mg/dL (74-106); Magnesium 2.1 mg/dL (1.8-2.4); Potassium 3.7 mmol/L (3.5-5.1); Sodium 138 mmol/L (136-145); TSH (W/Ref FT4) 2.25 uIU/mL (0.36-3.74); Total Protein 7.9 g/dL (6.4-8.2)
[2022-08-03 11:21] LABS: Troponin I < 50 ng/L (<or=60)
[2022-08-03 11:37] LABS: D-Dimer 205 ng/mlFEU (<500)
[2022-08-03 12:47] LABS: Troponin I < 50 ng/L (<or=60)
== END 2022-08-03 13:10 | disposition home or self-care (01) ==
PROVIDERS: Emergency Provider Physician Assistant; PCP Family Medicine
DX: R07.89 Other chest pain (principal); J45.909 Unspecified asthma, uncomplicated; Z79.51 Long term (current) use of inhaled steroids; Z20.822 Contact with and (suspected) exposure to COVID-19
CPT/HCPCS: 36415; 80053; 87635; 93005; 99283; 71046; 83735; 84443; 84484; 85025; 85379; 85610; 85730; 93010; 99285